=== PATIENT | male | born 1950 | race Caucasian/White ===

== ENCOUNTER 2022-08-27 04:52 | Inpatient (IN) | payer MEDICAID ==
[~2022-08-27] VITALS: Ht 162.6 cm; Wt 68.9 kg
[2022-08-27 05:33] LABS: CHLORIDE 104 mEq/L (98-107)
[2022-08-27 05:44] LABS: ETHANOL BLOOD < 10 mg/dL
[2022-08-27 05:48] LABS: BASOPHILS % 0.8 % (0.0-2.0); EOSINOPHILS % 4.5 % (0.0-5.0); HEMOGLOBIN. 15.5 g/dL (14.0-18.0); LYMPHOCYTES % 24.8 % (20.0-50.0); MEAN CORPUSCULAR HEMOGLOBIN 29.9 pg (28.0-32.0); MEAN CORPUSCULAR VOLUME 84.6 fL (80.0-94.0); MEAN PLATELET VOLUME 8.5 fl (7.4-10.4); MONOCYTES % 9.4 % (2.0-8.0); NEUTROPHILS % 60.5 % (40.0-76.0); PLATELET 188 x1000/uL (130-400); RED CELL DISTRIBUTION WIDTH 13.4 % (11.6-14.6)
[2022-08-27] MEDS ORDERED: IOHEXOL-350 100 ML BOTTLE ONE (07:20)
[2022-08-27 10:14] LABS: CLARITY URINE CLEAR (CLEAR); COLOR URINE YELLOW (YELLOW); KETONES URINE NEGATIVE (NEGATIVE); LEUKOCYTE ESTERASE URINE NEGATIVE (NEGATIVE); NITRITE URINE NEGATIVE (NEGATIVE); OCCULT BLOOD URINE NEGATIVE (NEGATIVE); PH URINE 5.5 (4.5-8.0); PROTEIN URINE 1+ (NEGATIVE); SPECIFIC GRAVITY URINE 1.054 (1.005-1.030); UROBILINOGEN URINE 0.2 E.U./dL (0.2-1.0)
[2022-08-27 11:06] LABS: *AMPHETAMINES SCREEN URINE NEGATIVE (NEGATIVE); *BARBITURATES SCREEN URINE NEGATIVE (NEGATIVE); *BENZODIAZEPINES SCREEN URINE NEGATIVE (NEGATIVE); *COCAINE SCREEN URINE NEGATIVE (NEGATIVE); CANNABINOID URINE SCREEN NEGATIVE (NEGATIVE); METHADONE URINE SCREEN NEGATIVE (NEGATIVE); OPIATES URINE SCREEN NEGATIVE (NEGATIVE); PHENCYCLIDINE URINE SCREEN NEGATIVE (NEGATIVE)
[2022-08-27] MEDS ORDERED: DEXTROSE 50% WATER 50ML SYRINGE IV PRN (12:45)
[2022-08-27] MEDS ORDERED: IPRATROPIUM/ALBUTEROL 0.5-3(2.5)MG/3ML NEB HHN PRN (12:45)
[2022-08-27] MEDS ORDERED: DIPHENHYDRAMINE 50MG/ML VIAL IV PRN (12:45)
[2022-08-27] MEDS ORDERED: ONDANSETRON HCL 4MG/2ML INJ IV PRN (12:45)
[2022-08-27] MEDS: BLOOD SUGAR DIAGNOSTIC STRIP TEST SCH ×3 (13:20→21:08)
[2022-08-27] MEDS: INSULIN LISPRO 100 UNITS/ML SUBCUT SCH ×2 (17:05→22:47)
[2022-08-27] MEDS: CLONIDINE 0.1MG TABLET PO PRN ×2 (17:06→19:25)
[2022-08-27 22:00] VITALS: BP 141/74
[2022-08-27] MEDS ORDERED: LISI10TA26 MT (23:45)
[2022-08-28] VITALS (7 sets, daily range): BP systolic 103–147; BP diastolic 59–75
[2022-08-28] MEDS: BLOOD SUGAR DIAGNOSTIC STRIP TEST SCH ×4 (06:16→21:00)
[2022-08-28] MEDS: INSULIN LISPRO 100 UNITS/ML SUBCUT SCH ×4 (06:31→20:46)
[2022-08-28 07:16] LABS: BASOPHILS % 0.7 % (0.0-2.0); EOSINOPHILS % 3.4 % (0.0-5.0); HEMATOCRIT. 43.3 % (42.0-52.0); HEMOGLOBIN. 15.3 g/dL (14.0-18.0); LYMPHOCYTES % 13.6 % (20.0-50.0); MEAN CORPUSCULAR HEMOGLOBIN 29.7 pg (28.0-32.0); MEAN CORPUSCULAR VOLUME 84.1 fL (80.0-94.0); MEAN PLATELET VOLUME 8.7 fl (7.4-10.4); MONOCYTES % 8.8 % (2.0-8.0); NEUTROPHILS % 73.5 % (40.0-76.0); PLATELET 181 x1000/uL (130-400); RED BLOOD CELL COUNT 5.15 mill/uL (4.7-6.1); RED CELL DISTRIBUTION WIDTH 13.2 % (11.6-14.6)
[2022-08-28] MEDS: ASPIRIN 81MG TABLET PO SCH (08:17)
[2022-08-28 08:29] LABS: CHLORIDE 103 mEq/L (98-107)
[2022-08-28 08:45] LABS: HDL CHOLESTEROL 55 mg/dL (40-59); LDL CHOLESTEROL 150 mg/dL (5-100)
[2022-08-28] MEDS: ENOXAPARIN 40MG/0.4ML SYR SUBCUT SCH (10:54)
[2022-08-28] MEDS: ATORVASTATIN CALCIUM 40MG TABLET PO SCH (20:46)
[2022-08-29] VITALS: BP 132/69
[2022-08-29 04:00] VITALS: BP 129/62
[2022-08-29] MEDS: INSULIN LISPRO 100 UNITS/ML SUBCUT SCH ×4 (05:56→20:57)
[2022-08-29] MEDS: BLOOD SUGAR DIAGNOSTIC STRIP TEST SCH ×4 (05:56→21:00)
[2022-08-29 06:46] LABS: BASOPHILS % 0.5 % (0.0-2.0); EOSINOPHILS % 2.7 % (0.0-5.0); HEMATOCRIT. 43.6 % (42.0-52.0); HEMOGLOBIN. 15.5 g/dL (14.0-18.0); LYMPHOCYTES % 15.1 % (20.0-50.0); MEAN CORPUSCULAR HEMOGLOBIN 29.8 pg (28.0-32.0); MEAN CORPUSCULAR VOLUME 84.1 fL (80.0-94.0); MEAN PLATELET VOLUME 8.8 fl (7.4-10.4); MONOCYTES % 11.1 % (2.0-8.0); NEUTROPHILS % 70.6 % (40.0-76.0); PLATELET 176 x1000/uL (130-400); RED BLOOD CELL COUNT 5.18 mill/uL (4.7-6.1); RED CELL DISTRIBUTION WIDTH 12.9 % (11.6-14.6)
[2022-08-29 06:49] LABS: CHLORIDE 101 mEq/L (98-107)
[2022-08-29] MEDS: ASPIRIN 81MG TABLET PO SCH (08:07)
[2022-08-29] MEDS: CLOPIDOGREL 75MG TABLET PO SCH (08:07)
[2022-08-29 09:00] VITALS: BP 125/74
[2022-08-29] MEDS: ENOXAPARIN 40MG/0.4ML SYR SUBCUT SCH (10:26)
[2022-08-29 12:00] VITALS: BP 135/58
[2022-08-29 16:00] VITALS: BP 154/76
[2022-08-29 20:00] VITALS: BP 139/74
[2022-08-29] MEDS: ATORVASTATIN CALCIUM 40MG TABLET PO SCH (20:57)
[2022-08-29] MEDS ORDERED: INSULIN GLARGINE 100 UNITS/ML SUBCUT SCH ×2 (22:00)
[2022-08-30 04:00] VITALS: BP 115/61
[2022-08-30] MEDS: INSULIN LISPRO 100 UNITS/ML SUBCUT SCH ×4 (06:09→20:46)
[2022-08-30] MEDS: BLOOD SUGAR DIAGNOSTIC STRIP TEST SCH ×4 (06:10→21:00)
[2022-08-30 08:00] VITALS: BP 121/71
[2022-08-30 08:31] LABS: HEMOGLOBIN. 14.8 g/dL (14.0-18.0); MEAN CORPUSCULAR HEMOGLOBIN 29.6 pg (28.0-32.0); MEAN PLATELET VOLUME 8.4 fl (7.4-10.4); PLATELET 168 x1000/uL (130-400); RED CELL DISTRIBUTION WIDTH 12.9 % (11.6-14.6)
[2022-08-30 08:44] LABS: CHLORIDE 103 mEq/L (98-107)
[2022-08-30] MEDS: CLOPIDOGREL 75MG TABLET PO SCH (09:33)
[2022-08-30] MEDS: ENOXAPARIN 40MG/0.4ML SYR SUBCUT SCH (09:34)
[2022-08-30] MEDS: ASPIRIN 81MG TABLET PO SCH (09:34)
[2022-08-30 12:00] VITALS: BP 129/65
[2022-08-30 14:52] LABS: PLATELET ESTIMATE NORMAL
[2022-08-30 16:00] VITALS: BP 154/59
[2022-08-30 20:00] VITALS: BP 137/68
[2022-08-30] MEDS: ATORVASTATIN CALCIUM 40MG TABLET PO SCH (20:45)
[2022-08-30] MEDS: INSULIN GLARGINE 100 UNITS/ML SUBCUT SCH (22:07)
[2022-08-31] VITALS (7 sets, daily range): BP systolic 112–160; BP diastolic 55–82
[2022-08-31] MEDS: BLOOD SUGAR DIAGNOSTIC STRIP TEST SCH ×4 (06:36→21:02)
[2022-08-31] MEDS: INSULIN LISPRO 100 UNITS/ML SUBCUT SCH ×4 (06:36→21:02)
[2022-08-31] MEDS: ASPIRIN 81MG TABLET PO SCH (09:15)
[2022-08-31] MEDS: CLOPIDOGREL 75MG TABLET PO SCH (09:15)
[2022-08-31] MEDS: ENOXAPARIN 40MG/0.4ML SYR SUBCUT SCH (13:22)
[2022-08-31] MEDS: ATORVASTATIN CALCIUM 40MG TABLET PO SCH (21:01)
[2022-08-31] MEDS: INSULIN GLARGINE 100 UNITS/ML SUBCUT SCH (22:21)
[2022-08-31] MEDS: CLONIDINE 0.1MG TABLET PO PRN (23:04)
[2022-09-01] VITALS: BP 125/60
[2022-09-01 04:00] VITALS: BP 124/55
[2022-09-01] MEDS: INSULIN LISPRO 100 UNITS/ML SUBCUT SCH ×4 (06:23→21:25)
[2022-09-01] MEDS: BLOOD SUGAR DIAGNOSTIC STRIP TEST SCH ×4 (06:23→21:22)
[2022-09-01 08:00] VITALS: BP 129/59
[2022-09-01] MEDS: ASPIRIN 81MG TABLET PO SCH (09:51)
[2022-09-01] MEDS: CLOPIDOGREL 75MG TABLET PO SCH (09:51)
[2022-09-01] MEDS: ENOXAPARIN 40MG/0.4ML SYR SUBCUT SCH (09:52)
[2022-09-01 12:00] VITALS: BP 131/63
[2022-09-01 16:00] VITALS: BP 126/58
[2022-09-01 16:45] LABS: PROTHROMBIN TIME 10.5 sec (9.6-11.0)
[2022-09-01 20:00] VITALS: BP 113/52
[2022-09-01] MEDS: INSULIN GLARGINE 100 UNITS/ML SUBCUT SCH (21:24)
[2022-09-01] MEDS: ATORVASTATIN CALCIUM 40MG TABLET PO SCH (22:00)
[2022-09-02] VITALS: BP 132/80
[2022-09-02 04:00] VITALS: BP 130/80
[2022-09-02] MEDS: BLOOD SUGAR DIAGNOSTIC STRIP TEST SCH ×4 (06:21→21:13)
[2022-09-02] MEDS: INSULIN LISPRO 100 UNITS/ML SUBCUT SCH ×4 (06:21→21:00)
[2022-09-02 08:00] VITALS: BP_SYST 116; BP_DIAS 61; BP_DIAS 67
[2022-09-02] MEDS: CLOPIDOGREL 75MG TABLET PO SCH (09:01)
[2022-09-02] MEDS: ASPIRIN 81MG TABLET PO SCH (09:01)
[2022-09-02] MEDS: ENOXAPARIN 40MG/0.4ML SYR SUBCUT SCH (11:58)
[2022-09-02 12:00] VITALS: BP 118/57
[2022-09-02 16:00] VITALS: BP 127/63
[2022-09-02 20:00] VITALS: BP 157/59
[2022-09-02] MEDS: INSULIN GLARGINE 100 UNITS/ML SUBCUT SCH (21:19)
[2022-09-02] MEDS: ATORVASTATIN CALCIUM 40MG TABLET PO SCH (21:19)
[2022-09-03] VITALS: BP 137/61
[2022-09-03 04:00] VITALS: BP 128/56
[2022-09-03] MEDS: INSULIN LISPRO 100 UNITS/ML SUBCUT SCH ×4 (06:24→20:44)
[2022-09-03] MEDS: BLOOD SUGAR DIAGNOSTIC STRIP TEST SCH ×4 (06:24→20:45)
[2022-09-03 08:00] VITALS: BP 138/57
[2022-09-03] MEDS: CLOPIDOGREL 75MG TABLET PO SCH (09:19)
[2022-09-03] MEDS: ASPIRIN 81MG TABLET PO SCH (09:19)
[2022-09-03] MEDS: ENOXAPARIN 40MG/0.4ML SYR SUBCUT SCH (11:28)
[2022-09-03 12:00] VITALS: BP 141/79
[2022-09-03] MEDS ORDERED: IPRATROPIUM BROMIDE (0.02%) 0.5MG/2.5ML NEB HHN PRN (12:45)
[2022-09-03] MEDS ORDERED: ALBUTEROL (0.083%) 2.5MG/3ML NEB HHN PRN (12:45)
[2022-09-03 16:00] VITALS: BP 141/67
[2022-09-03 20:00] VITALS: BP 146/62
[2022-09-03] MEDS: ATORVASTATIN CALCIUM 40MG TABLET PO SCH (20:41)
[2022-09-03] MEDS: INSULIN GLARGINE 100 UNITS/ML SUBCUT SCH (21:04)
[2022-09-04] VITALS: BP 147/61
[2022-09-04 04:00] VITALS: BP 157/65
[2022-09-04] MEDS: BLOOD SUGAR DIAGNOSTIC STRIP TEST SCH ×4 (06:41→21:19)
[2022-09-04] MEDS: INSULIN LISPRO 100 UNITS/ML SUBCUT SCH ×4 (06:41→21:34)
[2022-09-04 06:57] LABS: BASOPHILS % 0.7 % (0.0-2.0); EOSINOPHILS % 2.2 % (0.0-5.0); HEMATOCRIT. 39.1 % (42.0-52.0); LYMPHOCYTES % 19.5 % (20.0-50.0); MEAN CORPUSCULAR HEMOGLOBIN 30.1 pg (28.0-32.0); MEAN CORPUSCULAR VOLUME 84.2 fL (80.0-94.0); MEAN PLATELET VOLUME 8.5 fl (7.4-10.4); MONOCYTES % 9.1 % (2.0-8.0); NEUTROPHILS % 68.5 % (40.0-76.0); PLATELET 198 x1000/uL (130-400); RED BLOOD CELL COUNT 4.64 mill/uL (4.7-6.1); RED CELL DISTRIBUTION WIDTH 12.8 % (11.6-14.6)
[2022-09-04 07:26] LABS: CHLORIDE 105 mEq/L (98-107)
[2022-09-04 08:00] VITALS: BP 124/40
[2022-09-04] MEDS: CLOPIDOGREL 75MG TABLET PO SCH (09:27)
[2022-09-04] MEDS: ASPIRIN 81MG TABLET PO SCH (09:27)
[2022-09-04] MEDS: ENOXAPARIN 40MG/0.4ML SYR SUBCUT SCH (11:13)
[2022-09-04 12:00] VITALS: BP 144/64
[2022-09-04 16:00] VITALS: BP 160/76
[2022-09-04 20:00] VITALS: BP 139/58
[2022-09-04] MEDS: ATORVASTATIN CALCIUM 40MG TABLET PO SCH (21:29)
[2022-09-04] MEDS: INSULIN GLARGINE 100 UNITS/ML SUBCUT SCH (21:34)
[2022-09-05] VITALS: BP 128/60
[2022-09-05 04:00] VITALS: BP 114/60
[2022-09-05] MEDS: BLOOD SUGAR DIAGNOSTIC STRIP TEST SCH ×4 (06:32→20:54)
[2022-09-05] MEDS: INSULIN LISPRO 100 UNITS/ML SUBCUT SCH ×4 (06:40→20:54)
[2022-09-05 07:23] LABS: CHLORIDE 105 mEq/L (98-107)
[2022-09-05 07:35] LABS: BASOPHILS % 0.6 % (0.0-2.0); EOSINOPHILS % 2.3 % (0.0-5.0); HEMATOCRIT. 37.8 % (42.0-52.0); HEMOGLOBIN. 13.6 g/dL (14.0-18.0); LYMPHOCYTES % 19.3 % (20.0-50.0); MEAN CORPUSCULAR HEMOGLOBIN 30.1 pg (28.0-32.0); MEAN CORPUSCULAR VOLUME 83.6 fL (80.0-94.0); MEAN PLATELET VOLUME 8.5 fl (7.4-10.4); MONOCYTES % 10.3 % (2.0-8.0); NEUTROPHILS % 67.5 % (40.0-76.0); PLATELET 209 x1000/uL (130-400); RED BLOOD CELL COUNT 4.51 mill/uL (4.7-6.1); RED CELL DISTRIBUTION WIDTH 13.1 % (11.6-14.6)
[2022-09-05 12:00] VITALS: BP 139/41
[2022-09-05] MEDS: ENOXAPARIN 40MG/0.4ML SYR SUBCUT SCH (12:21)
[2022-09-05 16:00] VITALS: BP 118/56
[2022-09-05 20:00] VITALS: BP 131/56
[2022-09-05] MEDS: ATORVASTATIN CALCIUM 40MG TABLET PO SCH (20:52)
[2022-09-05] MEDS: INSULIN GLARGINE 100 UNITS/ML SUBCUT SCH (20:53)
[2022-09-06] VITALS: BP 125/59
[2022-09-06 04:00] VITALS: BP 119/59
[2022-09-06] MEDS: INSULIN LISPRO 100 UNITS/ML SUBCUT SCH ×4 (06:28→21:23)
[2022-09-06] MEDS: BLOOD SUGAR DIAGNOSTIC STRIP TEST SCH ×4 (06:28→20:57)
[2022-09-06 08:00] VITALS: BP 118/60
[2022-09-06] MEDS: ENOXAPARIN 40MG/0.4ML SYR SUBCUT SCH (08:37)
[2022-09-06 12:00] VITALS: BP 129/69
[2022-09-06 16:00] VITALS: BP 121/66
[2022-09-06 20:00] VITALS: BP 154/67
[2022-09-06] MEDS: ATORVASTATIN CALCIUM 40MG TABLET PO SCH (20:57)
[2022-09-06] MEDS: INSULIN GLARGINE 100 UNITS/ML SUBCUT SCH (21:24)
[2022-09-07 00:18] VITALS: BP 115/51
[2022-09-07 04:00] VITALS: BP 125/52
[2022-09-07] MEDS: BLOOD SUGAR DIAGNOSTIC STRIP TEST SCH ×4 (06:05→23:11)
[2022-09-07] MEDS: INSULIN LISPRO 100 UNITS/ML SUBCUT SCH ×4 (06:06→23:11)
[2022-09-07 08:00] VITALS: BP 111/60
[2022-09-07] MEDS: ENOXAPARIN 40MG/0.4ML SYR SUBCUT SCH (09:07)
[2022-09-07 12:00] VITALS: BP 142/48
[2022-09-07 16:00] VITALS: BP 141/67
[2022-09-07 20:00] VITALS: BP 134/55
[2022-09-07] MEDS: ATORVASTATIN CALCIUM 40MG TABLET PO SCH (23:08)
[2022-09-07] MEDS: INSULIN GLARGINE 100 UNITS/ML SUBCUT SCH (23:08)
[2022-09-08] VITALS: BP 142/55
[2022-09-08 04:00] VITALS: BP 130/68
[2022-09-08] MEDS: BLOOD SUGAR DIAGNOSTIC STRIP TEST SCH ×4 (05:57→20:40)
[2022-09-08] MEDS: INSULIN LISPRO 100 UNITS/ML SUBCUT SCH ×4 (05:58→20:40)
[2022-09-08 08:00] VITALS: BP 132/57
[2022-09-08] MEDS: ENOXAPARIN 40MG/0.4ML SYR SUBCUT SCH (11:38)
[2022-09-08 12:00] VITALS: BP 124/61
[2022-09-08 16:00] VITALS: BP 129/60
[2022-09-08 20:00] VITALS: BP 128/61
[2022-09-08] MEDS: ACETAMINOPHEN 325MG TABLET PO PRN (20:37)
[2022-09-08] MEDS: ATORVASTATIN CALCIUM 40MG TABLET PO SCH (20:37)
[2022-09-08] MEDS: INSULIN GLARGINE 100 UNITS/ML SUBCUT SCH (21:59)
[2022-09-09] VITALS: BP 121/57
[2022-09-09 04:00] VITALS: BP 124/67
[2022-09-09] MEDS: BLOOD SUGAR DIAGNOSTIC STRIP TEST SCH ×4 (07:20→21:00)
[2022-09-09] MEDS: INSULIN LISPRO 100 UNITS/ML SUBCUT SCH ×4 (07:50→21:00)
[2022-09-09 08:00] VITALS: BP 124/63
[2022-09-09 12:00] VITALS: BP 127/59
[2022-09-09 16:00] VITALS: BP 139/63
[2022-09-09 20:00] VITALS: BP 119/60
[2022-09-09] MEDS: INSULIN GLARGINE 100 UNITS/ML SUBCUT SCH (22:00)
[2022-09-09] MEDS: ATORVASTATIN CALCIUM 40MG TABLET PO SCH (22:04)
[2022-09-10] VITALS (40 sets, daily range): BP systolic 93–169; BP diastolic 30–108
[2022-09-10] MEDS: BLOOD SUGAR DIAGNOSTIC STRIP TEST SCH ×5 (05:47→21:57)
[2022-09-10] MEDS: INSULIN LISPRO 100 UNITS/ML SUBCUT SCH ×4 (06:08→21:00)
[2022-09-10 07:05] LABS: CHLORIDE 104 mEq/L (98-107)
[2022-09-10 07:30] LABS: BASOPHILS % 0.5 % (0.0-2.0); EOSINOPHILS % 1.9 % (0.0-5.0); HEMOGLOBIN. 11.9 g/dL (14.0-18.0); LYMPHOCYTES % 16.3 % (20.0-50.0); MEAN CORPUSCULAR HEMOGLOBIN 30.3 pg (28.0-32.0); MEAN CORPUSCULAR VOLUME 84.1 fL (80.0-94.0); MEAN PLATELET VOLUME 8.7 fl (7.4-10.4); MONOCYTES % 9.4 % (2.0-8.0); NEUTROPHILS % 71.9 % (40.0-76.0); PLATELET 231 x1000/uL (130-400); RED BLOOD CELL COUNT 3.93 mill/uL (4.7-6.1); RED CELL DISTRIBUTION WIDTH 12.6 % (11.6-14.6)
[2022-09-10] MEDS ORDERED: THROMBIN (BOVINE) 5000 UNITS/VIAL TOP ONE (08:18)
[2022-09-10] MEDS ORDERED: HEPARIN SODIUM 1,000 UNIT/1ML VIAL IV ONE (08:18)
[2022-09-10] MEDS ORDERED: POLYMYXIN B SULFATE 500000 UNITS/VIAL ONE (08:18)
[2022-09-10] MEDS ORDERED: LIDOCAINE HCL 1% 10 MG/ML 10ML VIAL ONE (08:20)
[2022-09-10] MEDS ORDERED: BUPIVACAINE HCL/PF 0.5% (5MG/ML) 10ML ONE (08:20)
[2022-09-10] MEDS ORDERED: NICARDIPINE 40MG/200ML PREMIX 200 ML IV ONE (08:33)
[2022-09-10] MEDS ORDERED: PAPAVERINE HCL 30 MG/ML 2ML IV ONE (09:49)
[2022-09-10] MEDS ORDERED: ETOMIDATE 2MG/ML 10ML VIAL IV ONE (12:42)
[2022-09-10] MEDS ORDERED: DEXAMETHASONE 4MG/ML 1ML VIAL ONE (12:42)
[2022-09-10] MEDS ORDERED: SUCCINYLCHOLINE CHLORIDE 200MG/10ML IV ONE (12:42)
[2022-09-10] MEDS ORDERED: ONDANSETRON HCL 4MG/2ML INJ ONE (12:42)
[2022-09-10] MEDS ORDERED: FENTANYL CITRATE/PF 50MCG/ML 2ML VIAL ONE (12:43)
[2022-09-10] MEDS ORDERED: GLYCOPYRROLATE 0.2 MG/ML 2ML VIAL ONE ×2 (12:43)
[2022-09-10] MEDS ORDERED: NEOSTIGMINE METHYLSULFATE 1MG/ML 10 ML VIAL ONE ×2 (12:43→14:46)
[2022-09-10] MEDS ORDERED: ROCURONIUM BROMIDE 10MG/ML VIAL 5ML IV ONE (12:43)
[2022-09-10] MEDS ORDERED: MIDAZOLAM HCL 2 MG/2 ML VIAL ONE (12:44)
[2022-09-10] MEDS ORDERED: PROPOFOL 200MG/20ML VIAL IV ONE (13:21)
[2022-09-10] MEDS ORDERED: LABETALOL HCL 5MG/ML VIAL 20ML IV ONE (14:54)
[2022-09-10] MEDS ORDERED: HYDRALAZINE 20MG/ML VIAL ONE (14:54)
[2022-09-10] MEDS ORDERED: HEPARIN 1000 UNITS/ML 10ML ONE (14:54)
[2022-09-10] MEDS ORDERED: PROTAMINE SULFATE 10MG/ML VIAL 5ML IV ONE (14:54)
[2022-09-10] MEDS ORDERED: DOPAMINE 400MG/250ML PREMIX 250 ML IV PRN (16:00)
[2022-09-10] MEDS: NITROGLYCERIN 50MG PREMIX 250 ML IV PRN (18:18)
[2022-09-10] MEDS: ATORVASTATIN CALCIUM 40MG TABLET PO SCH (21:00)
[2022-09-10] MEDS: MORPHINE SULFATE 2 MG/ML CPJ (NOT FOR IM USE) IV PRN (22:00)
[2022-09-10] MEDS: INSULIN GLARGINE 100 UNITS/ML SUBCUT SCH (22:00)
[2022-09-10] MEDS: ACETAMINOPHEN 325MG TABLET PO PRN (23:56)
[2022-09-11] VITALS (62 sets, daily range): BP systolic 48–207; BP diastolic 17–133
[2022-09-11] MEDS: ACETAMINOPHEN 650MG/20.3ML UDC PO PRN (00:43)
[2022-09-11] MEDS: MORPHINE SULFATE 2 MG/ML CPJ (NOT FOR IM USE) IV PRN ×4 (03:13→18:20)
[2022-09-11 05:14] LABS: HEMATOCRIT. 34.1 % (42.0-52.0); HEMOGLOBIN. 11.9 g/dL (14.0-18.0); MEAN CORPUSCULAR HEMOGLOBIN 29.3 pg (28.0-32.0); MEAN CORPUSCULAR VOLUME 83.6 fL (80.0-94.0); MEAN PLATELET VOLUME 8.2 fl (7.4-10.4); PLATELET 284 x1000/uL (130-400); RED BLOOD CELL COUNT 4.08 mill/uL (4.7-6.1); RED CELL DISTRIBUTION WIDTH 13.2 % (11.6-14.6)
[2022-09-11 05:47] LABS: CHLORIDE 106 mEq/L (98-107)
[2022-09-11] MEDS: BLOOD SUGAR DIAGNOSTIC STRIP TEST SCH ×4 (07:50→21:18)
[2022-09-11] MEDS: INSULIN LISPRO 100 UNITS/ML SUBCUT SCH ×5 (08:20→22:30)
[2022-09-11] MEDS: ASPIRIN 81MG TABLET PO SCH ×2 (09:39)
[2022-09-11 12:19] LABS: ATYPICAL LYMPHOCYTES 1
[2022-09-11 12:20] LABS: PLATELET ESTIMATE NORMAL
[2022-09-11] MEDS ORDERED: NALOXONE HCL 0.4MG/ML VIAL IV PRN (14:45)
[2022-09-11] MEDS: NITROGLYCERIN 50MG PREMIX 250 ML IV PRN (14:46)
[2022-09-11] MEDS: ATORVASTATIN CALCIUM 40MG TABLET PO SCH ×2 (21:17→22:09)
[2022-09-11] MEDS: NICARDIPINE 50 MG in SODIUM CHLORIDE 0.9% 230 ML IV PRN (22:08)
[2022-09-11] MEDS ORDERED: MORPHINE SULFATE 2 MG/ML CPJ (NOT FOR IM USE) IV PRN (22:15)
[2022-09-11] MEDS: INSULIN GLARGINE 100 UNITS/ML SUBCUT SCH (22:27)
[2022-09-12] VITALS (59 sets, daily range): BP systolic 55–254; BP diastolic 23–236
[2022-09-12] MEDS: NICARDIPINE 50 MG in SODIUM CHLORIDE 0.9% 230 ML IV PRN (03:13)
[2022-09-12] MEDS: DEXT 5%/0.45% NACL 1000ML 1,000 ML IV SCH ×2 (03:19→03:20)
[2022-09-12 05:19] LABS: HEMATOCRIT. 33.3 % (42.0-52.0); HEMOGLOBIN. 11.5 g/dL (14.0-18.0); MEAN PLATELET VOLUME 8.2 fl (7.4-10.4); PLATELET 278 x1000/uL (130-400); RED BLOOD CELL COUNT 3.96 mill/uL (4.7-6.1); RED CELL DISTRIBUTION WIDTH 12.7 % (11.6-14.6)
[2022-09-12 05:37] LABS: CHLORIDE 107 mEq/L (98-107)
[2022-09-12] MEDS: INSULIN LISPRO 100 UNITS/ML SUBCUT SCH ×3 (06:00→18:00)
[2022-09-12] MEDS: BLOOD SUGAR DIAGNOSTIC STRIP TEST SCH ×3 (06:10→18:39)
[2022-09-12] MEDS: ACETAMINOPHEN 650MG/20.3ML UDC PO PRN (07:02)
[2022-09-12] MEDS: ASPIRIN 81MG TABLET PO SCH (09:00)
[2022-09-12 10:42] LABS: BG BASE EXCESS -2.4 mmol/L (-2.0-2.0); BG CARBOXYHEMOGLOBIN 0.2 % (0.5-1.5); BG DEOXYHEMOGLOBIN 15.5 % (0.0-5.0); BG FRACTION INSPIRED OXYGEN 21; BG HCO3 ACT 20.8 mmol/L (22.0-26.0); BG METHEMOGLOBIN 0.3 % (0.0-1.5); BG OXYGEN SATURATION 84.4 % (92.0-98.5); BG PCO2 31.3 mmHg (35.0-45.0); BG PH 7.441 (7.350-7.450); BG PO2 45.8 mmHg (75.0-100.0); BG SAMPLE SITE ALINE; BG TOTAL HEMOGLOBIN 12.7 g/dL (12.0-18.0); BG VENT MODE ROOM AIR
[2022-09-12] MEDS: CEFEPIME 1,000 MG in DEXTROSE 5% WATER 50 ML IV SCH ×2 (11:00→23:19)
[2022-09-12 12:14] LABS: BG BASE EXCESS -0.1 mmol/L (-2.0-2.0); BG CARBOXYHEMOGLOBIN 0.4 % (0.5-1.5); BG DEOXYHEMOGLOBIN 8.1 % (0.0-5.0); BG FRACTION INSPIRED OXYGEN 60; BG HCO3 ACT 23.9 mmol/L (22.0-26.0); BG METHEMOGLOBIN 0.3 % (0.0-1.5); BG OXYGEN SATURATION 91.8 % (92.0-98.5); BG OXYHEMOGLOBIN 91.2 % (94.0-97.0); BG PCO2 36.9 mmHg (35.0-45.0); BG PO2 61.2 mmHg (75.0-100.0); BG SAMPLE SITE ALINE; BG TOTAL HEMOGLOBIN 12.7 g/dL (12.0-18.0); BG VENT MODE MASK - SIMPLE
[2022-09-12 15:12] LABS: PLATELET ESTIMATE NORMAL
[2022-09-12] MEDS: ATORVASTATIN CALCIUM 40MG TABLET PO SCH (22:02)
[2022-09-12] MEDS: INSULIN GLARGINE 100 UNITS/ML SUBCUT SCH (22:31)
[2022-09-13] VITALS (60 sets, daily range): BP systolic 119–151; BP diastolic 59–77
[2022-09-13] MEDS: INSULIN LISPRO 100 UNITS/ML SUBCUT SCH ×4 (01:12→17:57)
[2022-09-13] MEDS: BLOOD SUGAR DIAGNOSTIC STRIP TEST SCH ×4 (06:39→17:57)
[2022-09-13 07:20] LABS: CHLORIDE 108 mEq/L (98-107)
[2022-09-13 09:12] LABS: BG CARBOXYHEMOGLOBIN 0.3 % (0.5-1.5); BG DEOXYHEMOGLOBIN 4.1 % (0.0-5.0); BG HCO3 ACT 18.9 mmol/L (22.0-26.0); BG METHEMOGLOBIN 0.3 % (0.0-1.5); BG OXYGEN SATURATION 95.9 % (92.0-98.5); BG OXYHEMOGLOBIN 95.3 % (94.0-97.0); BG PCO2 28.3 mmHg (35.0-45.0); BG PH 7.443 (7.350-7.450); BG PO2 79.4 mmHg (75.0-100.0); BG SAMPLE SITE LEFT RADIAL; BG TOTAL HEMOGLOBIN 11.7 g/dL (12.0-18.0); BG VENT MODE MASK - SIMPLE
[2022-09-13 12:16] LABS: HEMATOCRIT. 31.5 % (42.0-52.0); MEAN CORPUSCULAR HEMOGLOBIN 29.8 pg (28.0-32.0); MEAN CORPUSCULAR VOLUME 85.2 fL (80.0-94.0); PLATELET 241 x1000/uL (130-400)
[2022-09-13] MEDS ORDERED: IOHEXOL-350 100 ML BOTTLE ONE (12:35)
[2022-09-13 12:48] LABS: PLATELET ESTIMATE NORMAL
[2022-09-13] MEDS: SODIUM CHLORIDE 0.9% 1,000 ML IV SCH (13:01)
[2022-09-13] MEDS: CEFEPIME 1,000 MG in DEXTROSE 5% WATER 50 ML IV SCH ×2 (13:02→23:06)
[2022-09-13] MEDS: NICARDIPINE 50 MG in SODIUM CHLORIDE 0.9% 230 ML IV PRN (17:57)
[2022-09-13] MEDS: ATORVASTATIN CALCIUM 40MG TABLET PO SCH (21:49)
[2022-09-14] VITALS (96 sets, daily range): BP systolic 115–147; BP diastolic 57–77
[2022-09-14] MEDS: INSULIN LISPRO 100 UNITS/ML SUBCUT SCH ×4 (00:24→17:48)
[2022-09-14] MEDS: NICARDIPINE 50 MG in SODIUM CHLORIDE 0.9% 230 ML IV PRN ×5 (02:04→22:08)
[2022-09-14 05:01] LABS: HEMATOCRIT. 33.3 % (42.0-52.0); HEMOGLOBIN. 11.6 g/dL (14.0-18.0); MEAN CORPUSCULAR HEMOGLOBIN 29.3 pg (28.0-32.0); MEAN CORPUSCULAR VOLUME 84.6 fL (80.0-94.0); MEAN PLATELET VOLUME 7.9 fl (7.4-10.4); PLATELET 269 x1000/uL (130-400); RED BLOOD CELL COUNT 3.94 mill/uL (4.7-6.1); RED CELL DISTRIBUTION WIDTH 12.9 % (11.6-14.6)
[2022-09-14 05:17] LABS: CHLORIDE 108 mEq/L (98-107)
[2022-09-14] MEDS: BLOOD SUGAR DIAGNOSTIC STRIP TEST SCH ×5 (06:00→23:49)
[2022-09-14] MEDS: SODIUM CHLORIDE 0.9% 1,000 ML IV SCH (06:23)
[2022-09-14 09:13] LABS: PLATELET ESTIMATE NORMAL
[2022-09-14] MEDS: CEFEPIME 1,000 MG in DEXTROSE 5% WATER 50 ML IV SCH ×2 (11:19→22:06)
[2022-09-14] MEDS: PANTOPRAZOLE SODIUM 40 MG/VIAL IV SCH (17:48)
[2022-09-14] MEDS: ATORVASTATIN CALCIUM 40MG TABLET PO SCH (20:40)
[2022-09-15] VITALS (94 sets, daily range): BP systolic 117–153; BP diastolic 41–74
[2022-09-15] MEDS: INSULIN LISPRO 100 UNITS/ML SUBCUT SCH ×4 (00:09→17:49)
[2022-09-15] MEDS: NICARDIPINE 50 MG in SODIUM CHLORIDE 0.9% 230 ML IV PRN ×5 (02:53→20:16)
[2022-09-15] MEDS: HYDRALAZINE 20MG/ML VIAL IV PRN (03:56)
[2022-09-15 05:10] LABS: MEAN CORPUSCULAR HEMOGLOBIN 29.2 pg (28.0-32.0); MEAN CORPUSCULAR VOLUME 84.7 fL (80.0-94.0); MEAN PLATELET VOLUME 7.7 fl (7.4-10.4); PLATELET 309 x1000/uL (130-400); RED BLOOD CELL COUNT 3.78 mill/uL (4.7-6.1); RED CELL DISTRIBUTION WIDTH 12.6 % (11.6-14.6)
[2022-09-15 05:42] LABS: CHLORIDE 115 mEq/L (98-107)
[2022-09-15] MEDS: BLOOD SUGAR DIAGNOSTIC STRIP TEST SCH ×3 (06:00→17:41)
[2022-09-15 10:09] LABS: PLATELET ESTIMATE NORMAL
[2022-09-15] MEDS: CEFEPIME 1,000 MG in DEXTROSE 5% WATER 50 ML IV SCH (10:09)
[2022-09-15] MEDS: PANTOPRAZOLE SODIUM 40 MG/VIAL IV SCH (10:10)
[2022-09-15] MEDS: SODIUM CHLORIDE 0.9% 1,000 ML IV SCH (10:10)
[2022-09-15] MEDS: INSULIN GLARGINE 100 UNITS/ML SUBCUT SCH ×2 (13:47→22:30)
[2022-09-15] MEDS ORDERED: NICARDIPINE 100 MG in SODIUM CHLORIDE 0.9% 60 ML IV PRN (19:00)
[2022-09-15] MEDS: ACETAMINOPHEN 650MG/20.3ML UDC PO PRN (20:45)
[2022-09-15] MEDS: ATORVASTATIN CALCIUM 40MG TABLET PO SCH (20:45)
[2022-09-15] MEDS: PIPERACILLIN/TAZOBACTAM 3.375 G in DEXTROSE 5% WATER 50 ML IV SCH (22:23)
[2022-09-15 23:05] LABS: CLARITY URINE CLEAR (CLEAR); COLOR URINE YELLOW (YELLOW); KETONES URINE TRACE (NEGATIVE); LEUKOCYTE ESTERASE URINE NEGATIVE (NEGATIVE); NITRITE URINE NEGATIVE (NEGATIVE); OCCULT BLOOD URINE NEGATIVE (NEGATIVE); PH URINE 5.5 (4.5-8.0); PROTEIN URINE 1+ (NEGATIVE); SPECIFIC GRAVITY URINE 1.021 (1.005-1.030)
[2022-09-16] VITALS (86 sets, daily range): BP systolic 105–152; BP diastolic 39–73
[2022-09-16] MEDS: INSULIN LISPRO 100 UNITS/ML SUBCUT SCH ×4 (00:03→17:39)
[2022-09-16] MEDS: NICARDIPINE 50 MG in SODIUM CHLORIDE 0.9% 230 ML IV PRN (01:47)
[2022-09-16 05:51] LABS: CHLORIDE 119 mEq/L (98-107)
[2022-09-16] MEDS: BLOOD SUGAR DIAGNOSTIC STRIP TEST SCH ×4 (06:13→17:13)
[2022-09-16] MEDS: PIPERACILLIN/TAZOBACTAM 3.375 G in DEXTROSE 5% WATER 50 ML IV SCH ×3 (06:13→21:26)
[2022-09-16 06:28] LABS: HEMATOCRIT. 31.4 % (42.0-52.0); HEMOGLOBIN. 10.5 g/dL (14.0-18.0); MEAN CORPUSCULAR HEMOGLOBIN 29.4 pg (28.0-32.0); MEAN CORPUSCULAR VOLUME 87.6 fL (80.0-94.0); MEAN PLATELET VOLUME 8.3 fl (7.4-10.4); PLATELET 290 x1000/uL (130-400); RED BLOOD CELL COUNT 3.58 mill/uL (4.7-6.1)
[2022-09-16] MEDS: PANTOPRAZOLE SODIUM 40 MG/VIAL IV SCH (09:22)
[2022-09-16] MEDS: INSULIN GLARGINE 100 UNITS/ML SUBCUT SCH ×2 (09:24→21:27)
[2022-09-16] MEDS: ACETAMINOPHEN 650MG/20.3ML UDC PO PRN ×2 (09:24→10:34)
[2022-09-16] MEDS ORDERED: INSULIN GLARGINE 100 UNITS/ML SUBCUT NR (10:15)
[2022-09-16 12:27] LABS: PLATELET ESTIMATE NORMAL
[2022-09-16] MEDS ORDERED: MORPHINE SULFATE 2 MG/ML CPJ (NOT FOR IM USE) IV PRN (17:30)
[2022-09-16] MEDS: ATORVASTATIN CALCIUM 40MG TABLET PO SCH (21:26)
[2022-09-17] VITALS (98 sets, daily range): BP systolic 108–163; BP diastolic 44–80
[2022-09-17] MEDS: INSULIN LISPRO 100 UNITS/ML SUBCUT SCH ×5 (00:01→17:46)
[2022-09-17] MEDS: HYDRALAZINE 20MG/ML VIAL IV PRN ×2 (03:19→09:16)
[2022-09-17] MEDS: ALBUTEROL (0.083%) 2.5MG/3ML NEB HHN SCH ×5 (04:34→21:04)
[2022-09-17] MEDS: NITROGLYCERIN 50MG PREMIX 250 ML IV PRN (04:42)
[2022-09-17] MEDS: NICARDIPINE 50 MG in SODIUM CHLORIDE 0.9% 230 ML IV PRN ×4 (04:49→16:09)
[2022-09-17 05:40] LABS: CHLORIDE 122 mEq/L (98-107)
[2022-09-17] MEDS ORDERED: ACETYLCYSTEINE 100MG/ML 10% VIAL 4ML INH SCH (06:00)
[2022-09-17 06:11] LABS: HEMATOCRIT. 36.6 % (42.0-52.0); HEMOGLOBIN. 12.4 g/dL (14.0-18.0); MEAN CORPUSCULAR HEMOGLOBIN 28.9 pg (28.0-32.0); MEAN CORPUSCULAR VOLUME 85.7 fL (80.0-94.0); MEAN PLATELET VOLUME 8.4 fl (7.4-10.4); PLATELET 288 x1000/uL (130-400); RED BLOOD CELL COUNT 4.27 mill/uL (4.7-6.1); RED CELL DISTRIBUTION WIDTH 12.9 % (11.6-14.6)
[2022-09-17] MEDS: PIPERACILLIN/TAZOBACTAM 3.375 G in DEXTROSE 5% WATER 50 ML IV SCH ×3 (06:28→22:25)
[2022-09-17] MEDS: BLOOD SUGAR DIAGNOSTIC STRIP TEST SCH ×4 (06:28→18:18)
[2022-09-17] MEDS: ACETAMINOPHEN 650MG/20.3ML UDC PO PRN (06:47)
[2022-09-17] MEDS: PANTOPRAZOLE SODIUM 40 MG/VIAL IV SCH (09:07)
[2022-09-17] MEDS: INSULIN GLARGINE 100 UNITS/ML SUBCUT SCH ×2 (09:10→22:29)
[2022-09-17 09:15] LABS: BG BASE EXCESS -1.6 mmol/L (-2.0-2.0); BG CARBOXYHEMOGLOBIN 0.2 % (0.5-1.5); BG DEOXYHEMOGLOBIN 0.9 % (0.0-5.0); BG FRACTION INSPIRED OXYGEN 100; BG HCO3 ACT 20.6 mmol/L (22.0-26.0); BG METHEMOGLOBIN 0.1 % (0.0-1.5); BG OXYGEN SATURATION 99.1 % (92.0-98.5); BG OXYHEMOGLOBIN 98.8 % (94.0-97.0); BG PCO2 27.7 mmHg (35.0-45.0); BG PO2 331.3 mmHg (75.0-100.0); BG SAMPLE SITE RIGHT RADIAL; BG TOTAL HEMOGLOBIN 12.2 g/dL (12.0-18.0); BG VENT MODE HIGH FLOW
[2022-09-17] MEDS ORDERED: ACETYLCYSTEINE 200MG/ML 20% VIAL 4ML INH SCH (09:30)
[2022-09-17] MEDS: ACETYLCYSTEINE 200MG/ML 20% VIAL 4ML INH SCH ×2 (11:02→15:53)
[2022-09-17] MEDS: AMLODIPINE 10MG TABLET PO SCH (16:09)
[2022-09-17] MEDS: CARVEDILOL 6.25 MG TABLET PO SCH ×2 (16:10→22:26)
[2022-09-17 16:43] LABS: PLATELET ESTIMATE NORMAL
[2022-09-17] MEDS: ATORVASTATIN CALCIUM 40MG TABLET PO SCH (22:25)
[2022-09-18] VITALS (84 sets, daily range): BP systolic 89–145; BP diastolic 37–61
[2022-09-18] MEDS: BLOOD SUGAR DIAGNOSTIC STRIP TEST SCH ×4 (00:28→18:29)
[2022-09-18] MEDS: INSULIN LISPRO 100 UNITS/ML SUBCUT SCH ×4 (00:29→18:33)
[2022-09-18] MEDS: ALBUTEROL (0.083%) 2.5MG/3ML NEB HHN SCH ×6 (01:34→21:03)
[2022-09-18] MEDS: ACETYLCYSTEINE 200MG/ML 20% VIAL 4ML INH SCH ×3 (01:34→15:05)
[2022-09-18] MEDS: NITROGLYCERIN 50MG PREMIX 250 ML IV PRN (04:08)
[2022-09-18] MEDS: NICARDIPINE 50 MG in SODIUM CHLORIDE 0.9% 230 ML IV PRN (04:09)
[2022-09-18 05:49] LABS: HEMATOCRIT. 32.4 % (42.0-52.0); HEMOGLOBIN. 10.8 g/dL (14.0-18.0); MEAN CORPUSCULAR HEMOGLOBIN 28.9 pg (28.0-32.0); MEAN CORPUSCULAR VOLUME 86.9 fL (80.0-94.0); MEAN PLATELET VOLUME 8.3 fl (7.4-10.4); PLATELET 323 x1000/uL (130-400); RED BLOOD CELL COUNT 3.73 mill/uL (4.7-6.1)
[2022-09-18] MEDS: PIPERACILLIN/TAZOBACTAM 3.375 G in DEXTROSE 5% WATER 50 ML IV SCH ×3 (07:16→22:30)
[2022-09-18] MEDS: CARVEDILOL 6.25 MG TABLET PO SCH (08:50)
[2022-09-18] MEDS: PANTOPRAZOLE SODIUM 40 MG/VIAL IV SCH (08:51)
[2022-09-18] MEDS: AMLODIPINE 10MG TABLET PO SCH ×2 (08:51→18:32)
[2022-09-18 08:57] LABS: BG BASE EXCESS -2.4 mmol/L (-2.0-2.0); BG CARBOXYHEMOGLOBIN 0.2 % (0.5-1.5); BG DEOXYHEMOGLOBIN 8.9 % (0.0-5.0); BG FRACTION INSPIRED OXYGEN 70; BG HCO3 ACT 20.2 mmol/L (22.0-26.0); BG METHEMOGLOBIN 0.3 % (0.0-1.5); BG OXYGEN SATURATION 91.1 % (92.0-98.5); BG OXYHEMOGLOBIN 90.6 % (94.0-97.0); BG PCO2 28.3 mmHg (35.0-45.0); BG PH 7.472 (7.350-7.450); BG PO2 60.8 mmHg (75.0-100.0); BG SAMPLE SITE RIGHT RADIAL; BG TOTAL HEMOGLOBIN 11.6 g/dL (12.0-18.0); BG VENT MODE HIGH FLOW
[2022-09-18] MEDS: INSULIN GLARGINE 100 UNITS/ML SUBCUT SCH ×2 (09:00→22:45)
[2022-09-18 10:12] LABS: PLATELET ESTIMATE NORMAL
[2022-09-18 11:58] LABS: BG BASE EXCESS -1.5 mmol/L (-2.0-2.0); BG CARBOXYHEMOGLOBIN 0.3 % (0.5-1.5); BG DEOXYHEMOGLOBIN 6.7 % (0.0-5.0); BG FRACTION INSPIRED OXYGEN 100; BG HCO3 ACT 21.9 mmol/L (22.0-26.0); BG METHEMOGLOBIN 0.4 % (0.0-1.5); BG OXYGEN SATURATION 93.3 % (92.0-98.5); BG OXYHEMOGLOBIN 92.6 % (94.0-97.0); BG PCO2 32.6 mmHg (35.0-45.0); BG PH 7.446 (7.350-7.450); BG PO2 69.4 mmHg (75.0-100.0); BG SAMPLE SITE RIGHT RADIAL; BG TOTAL HEMOGLOBIN 10.9 g/dL (12.0-18.0); BG VENT MODE HIGH FLOW
[2022-09-18] MEDS: HYDRALAZINE HCL 100MG TABLET PO SCH ×2 (12:04→18:32)
[2022-09-18] MEDS ORDERED: MORPHINE SULFATE 2 MG/ML CPJ (NOT FOR IM USE) IV PRN (14:30)
[2022-09-18] MEDS ORDERED: LORAZEPAM 2MG/ML CPJ IV PRN (14:30)
[2022-09-18] MEDS ORDERED: NALOXONE HCL 0.4MG/ML VIAL IV PRN (14:45)
[2022-09-18 15:21] LABS: BG BASE EXCESS -0.7 mmol/L (-2.0-2.0); BG CARBOXYHEMOGLOBIN 0.3 % (0.5-1.5); BG DEOXYHEMOGLOBIN 14.3 % (0.0-5.0); BG FRACTION INSPIRED OXYGEN 100; BG HCO3 ACT 23.7 mmol/L (22.0-26.0); BG METHEMOGLOBIN 0.3 % (0.0-1.5); BG OXYGEN SATURATION 85.6 % (92.0-98.5); BG OXYHEMOGLOBIN 85.1 % (94.0-97.0); BG PH 7.413 (7.350-7.450); BG PO2 52.1 mmHg (75.0-100.0); BG SAMPLE SITE RIGHT RADIAL; BG TOTAL HEMOGLOBIN 11.3 g/dL (12.0-18.0); BG VENT MODE VENT - AC
[2022-09-18] MEDS ORDERED: PROPOFOL 10MG/ML 100ML 100 ML IV PRN (21:15)
[2022-09-18] MEDS: CARVEDILOL 12.5MG TABLET PO SCH (21:34)
[2022-09-18] MEDS: ATORVASTATIN CALCIUM 40MG TABLET PO SCH (21:35)
[2022-09-19] VITALS (90 sets, daily range): BP systolic 106–195; BP diastolic 44–90
[2022-09-19] MEDS: BLOOD SUGAR DIAGNOSTIC STRIP TEST SCH ×4 (00:14→17:28)
[2022-09-19] MEDS: INSULIN LISPRO 100 UNITS/ML SUBCUT SCH ×4 (00:18→17:54)
[2022-09-19] MEDS: ALBUTEROL (0.083%) 2.5MG/3ML NEB HHN SCH ×6 (00:37→20:09)
[2022-09-19] MEDS: ACETYLCYSTEINE 200MG/ML 20% VIAL 4ML INH SCH ×3 (00:37→16:08)
[2022-09-19 05:21] LABS: HEMATOCRIT. 32.5 % (42.0-52.0); HEMOGLOBIN. 10.9 g/dL (14.0-18.0); MEAN CORPUSCULAR HEMOGLOBIN 28.7 pg (28.0-32.0); MEAN CORPUSCULAR VOLUME 85.8 fL (80.0-94.0); MEAN PLATELET VOLUME 8.2 fl (7.4-10.4); PLATELET 310 x1000/uL (130-400); RED BLOOD CELL COUNT 3.79 mill/uL (4.7-6.1); RED CELL DISTRIBUTION WIDTH 13.2 % (11.6-14.6)
[2022-09-19] MEDS: PIPERACILLIN/TAZOBACTAM 3.375 G in DEXTROSE 5% WATER 50 ML IV SCH ×3 (06:17→21:51)
[2022-09-19] MEDS: NICARDIPINE 50 MG in SODIUM CHLORIDE 0.9% 230 ML IV PRN (06:18)
[2022-09-19] MEDS: NITROGLYCERIN 50MG PREMIX 250 ML IV PRN (06:20)
[2022-09-19] MEDS: HYDRALAZINE HCL 100MG TABLET PO SCH ×4 (06:27→17:54)
[2022-09-19] MEDS: CARVEDILOL 12.5MG TABLET PO SCH ×2 (09:17→21:50)
[2022-09-19] MEDS: PANTOPRAZOLE SODIUM 40 MG/VIAL IV SCH (09:17)
[2022-09-19] MEDS: AMLODIPINE 10MG TABLET PO SCH ×2 (09:17→16:30)
[2022-09-19] MEDS: INSULIN GLARGINE 100 UNITS/ML SUBCUT SCH ×2 (09:18→21:53)
[2022-09-19 09:32] LABS: BG BASE EXCESS -1.6 mmol/L (-2.0-2.0); BG CARBOXYHEMOGLOBIN 0.3 % (0.5-1.5); BG DEOXYHEMOGLOBIN 1.4 % (0.0-5.0); BG HCO3 ACT 21.7 mmol/L (22.0-26.0); BG OXYGEN SATURATION 98.6 % (92.0-98.5); BG OXYHEMOGLOBIN 98.3 % (94.0-97.0); BG PCO2 31.9 mmHg (35.0-45.0); BG PO2 152.1 mmHg (75.0-100.0); BG SAMPLE SITE RIGHT RADIAL; BG TOTAL HEMOGLOBIN 11.1 g/dL (12.0-18.0); BG VENT MODE VENT - AC
[2022-09-19 12:48] LABS: PLATELET ESTIMATE NORMAL
[2022-09-19] MEDS: NYSTATIN 100,000 UNITS/ML 5ML UDC SSW SCH (17:54)
[2022-09-19] MEDS: ATORVASTATIN CALCIUM 40MG TABLET PO SCH (21:50)
[2022-09-20] VITALS (95 sets, daily range): BP systolic 108–166; BP diastolic 43–96
[2022-09-20] MEDS: NYSTATIN 100,000 UNITS/ML 5ML UDC SSW SCH ×4 (00:20→17:40)
[2022-09-20] MEDS: HYDRALAZINE HCL 100MG TABLET PO SCH ×4 (00:21→17:40)
[2022-09-20] MEDS: BLOOD SUGAR DIAGNOSTIC STRIP TEST SCH ×4 (00:21→17:04)
[2022-09-20] MEDS: INSULIN LISPRO 100 UNITS/ML SUBCUT SCH ×4 (00:22→17:41)
[2022-09-20] MEDS: ALBUTEROL (0.083%) 2.5MG/3ML NEB HHN SCH ×6 (00:29→20:35)
[2022-09-20] MEDS: ACETYLCYSTEINE 200MG/ML 20% VIAL 4ML INH SCH ×3 (00:29→16:39)
[2022-09-20 06:33] LABS: HEMATOCRIT. 33.1 % (42.0-52.0); HEMOGLOBIN. 11.2 g/dL (14.0-18.0); MEAN PLATELET VOLUME 8.4 fl (7.4-10.4); PLATELET 301 x1000/uL (130-400); RED BLOOD CELL COUNT 3.85 mill/uL (4.7-6.1)
[2022-09-20] MEDS: PIPERACILLIN/TAZOBACTAM 3.375 G in DEXTROSE 5% WATER 50 ML IV SCH ×2 (06:34→13:34)
[2022-09-20 06:40] LABS: CHLORIDE 119 mEq/L (98-107)
[2022-09-20 09:57] LABS: BG BASE EXCESS 0.2 mmol/L (-2.0-2.0); BG CARBOXYHEMOGLOBIN 0.4 % (0.5-1.5); BG DEOXYHEMOGLOBIN 4.3 % (0.0-5.0); BG FRACTION INSPIRED OXYGEN 40; BG HCO3 ACT 24.5 mmol/L (22.0-26.0); BG METHEMOGLOBIN 0.3 % (0.0-1.5); BG OXYGEN SATURATION 95.7 % (92.0-98.5); BG PCO2 38.4 mmHg (35.0-45.0); BG PH 7.422 (7.350-7.450); BG SAMPLE SITE RIGHT RADIAL; BG TOTAL HEMOGLOBIN 12.7 g/dL (12.0-18.0); BG VENT MODE VENT - AC
[2022-09-20] MEDS: AMLODIPINE 10MG TABLET PO SCH ×2 (10:17→17:40)
[2022-09-20] MEDS: CARVEDILOL 12.5MG TABLET PO SCH ×2 (10:17→21:28)
[2022-09-20] MEDS: PANTOPRAZOLE SODIUM 40 MG/VIAL IV SCH (10:18)
[2022-09-20] MEDS: INSULIN GLARGINE 100 UNITS/ML SUBCUT SCH ×2 (10:19→21:43)
[2022-09-20 15:13] LABS: PLATELET ESTIMATE NORMAL
[2022-09-20] MEDS: ATORVASTATIN CALCIUM 40MG TABLET PO SCH (21:28)
[2022-09-21] VITALS (63 sets, daily range): BP systolic 102–163; BP diastolic 44–75
[2022-09-21] MEDS: ALBUTEROL (0.083%) 2.5MG/3ML NEB HHN SCH ×6 (00:08→20:21)
[2022-09-21] MEDS: HYDRALAZINE HCL 100MG TABLET PO SCH ×4 (00:34→17:47)
[2022-09-21] MEDS: NYSTATIN 100,000 UNITS/ML 5ML UDC SSW SCH ×4 (00:34→17:46)
[2022-09-21] MEDS: BLOOD SUGAR DIAGNOSTIC STRIP TEST SCH ×4 (00:35→17:47)
[2022-09-21] MEDS: INSULIN LISPRO 100 UNITS/ML SUBCUT SCH ×4 (00:43→17:48)
[2022-09-21 05:45] LABS: BASOPHILS % 0.2 % (0.0-2.0); EOSINOPHILS % 0.5 % (0.0-5.0); HEMATOCRIT. 33.1 % (42.0-52.0); HEMOGLOBIN. 11.1 g/dL (14.0-18.0); LYMPHOCYTES % 8.2 % (20.0-50.0); MEAN CORPUSCULAR HEMOGLOBIN 29.1 pg (28.0-32.0); MEAN CORPUSCULAR VOLUME 86.6 fL (80.0-94.0); MEAN PLATELET VOLUME 8.5 fl (7.4-10.4); MONOCYTES % 7.3 % (2.0-8.0); NEUTROPHILS % 83.8 % (40.0-76.0); PLATELET 360 x1000/uL (130-400); RED BLOOD CELL COUNT 3.83 mill/uL (4.7-6.1); RED CELL DISTRIBUTION WIDTH 13.1 % (11.6-14.6)
[2022-09-21] MEDS: ACETYLCYSTEINE 200MG/ML 20% VIAL 4ML INH SCH ×2 (08:20→16:47)
[2022-09-21] MEDS: PANTOPRAZOLE SODIUM 40 MG/VIAL IV SCH (08:43)
[2022-09-21] MEDS: AMLODIPINE 10MG TABLET PO SCH ×2 (08:44→17:04)
[2022-09-21] MEDS: CARVEDILOL 12.5MG TABLET PO SCH ×2 (08:44→21:25)
[2022-09-21 09:55] LABS: BG BASE EXCESS 1.3 mmol/L (-2.0-2.0); BG CARBOXYHEMOGLOBIN 0.2 % (0.5-1.5); BG DEOXYHEMOGLOBIN 3.5 % (0.0-5.0); BG FRACTION INSPIRED OXYGEN 40; BG HCO3 ACT 25.4 mmol/L (22.0-26.0); BG METHEMOGLOBIN 0.3 % (0.0-1.5); BG OXYGEN SATURATION 96.5 % (92.0-98.5); BG PCO2 38.5 mmHg (35.0-45.0); BG PH 7.438 (7.350-7.450); BG PO2 92.4 mmHg (75.0-100.0); BG SAMPLE SITE RIGHT RADIAL; BG TOTAL HEMOGLOBIN 10.8 g/dL (12.0-18.0); BG VENT MODE VENT - AC
[2022-09-21] MEDS: INSULIN GLARGINE 100 UNITS/ML SUBCUT SCH ×2 (09:58→22:55)
[2022-09-21] MEDS: DEXTROSE 5% WATER 1,000 ML IV SCH (16:21)
[2022-09-21] MEDS: AZITHROMYCIN 500 MG in DEXT 5% WATER 250 ML IV SCH (17:47)
[2022-09-21] MEDS: ATORVASTATIN CALCIUM 40MG TABLET PO SCH (21:23)
[2022-09-22] VITALS (44 sets, daily range): BP systolic 100–173; BP diastolic 43–83
[2022-09-22] MEDS: ALBUTEROL (0.083%) 2.5MG/3ML NEB HHN SCH ×5 (00:25→20:35)
[2022-09-22] MEDS: ACETYLCYSTEINE 200MG/ML 20% VIAL 4ML INH SCH ×3 (00:25→14:38)
[2022-09-22] MEDS: NYSTATIN 100,000 UNITS/ML 5ML UDC SSW SCH ×4 (00:39→17:46)
[2022-09-22] MEDS: BLOOD SUGAR DIAGNOSTIC STRIP TEST SCH ×4 (00:39→17:28)
[2022-09-22] MEDS: HYDRALAZINE HCL 100MG TABLET PO SCH ×4 (00:40→17:46)
[2022-09-22] MEDS: INSULIN LISPRO 100 UNITS/ML SUBCUT SCH ×4 (01:14→17:47)
[2022-09-22 05:47] LABS: BASOPHILS % 0.2 % (0.0-2.0); EOSINOPHILS % 0.7 % (0.0-5.0); HEMATOCRIT. 35.6 % (42.0-52.0); HEMOGLOBIN. 11.8 g/dL (14.0-18.0); LYMPHOCYTES % 8.7 % (20.0-50.0); MEAN CORPUSCULAR HEMOGLOBIN 28.7 pg (28.0-32.0); MEAN CORPUSCULAR VOLUME 86.4 fL (80.0-94.0); MEAN PLATELET VOLUME 8.6 fl (7.4-10.4); MONOCYTES % 7.3 % (2.0-8.0); NEUTROPHILS % 83.1 % (40.0-76.0); PLATELET 365 x1000/uL (130-400); RED BLOOD CELL COUNT 4.12 mill/uL (4.7-6.1); RED CELL DISTRIBUTION WIDTH 12.9 % (11.6-14.6)
[2022-09-22 06:03] LABS: CHLORIDE 115 mEq/L (98-107)
[2022-09-22] MEDS: PANTOPRAZOLE SODIUM 40 MG/VIAL IV SCH (08:05)
[2022-09-22] MEDS: CARVEDILOL 12.5MG TABLET PO SCH ×2 (08:06→20:54)
[2022-09-22] MEDS: AMLODIPINE 10MG TABLET PO SCH ×2 (08:07→17:00)
[2022-09-22] MEDS ORDERED: ALBUTEROL (0.083%) 2.5MG/3ML NEB ONE (08:48)
[2022-09-22 09:46] LABS: BG BASE EXCESS 3.1 mmol/L (-2.0-2.0); BG CARBOXYHEMOGLOBIN 0.2 % (0.5-1.5); BG DEOXYHEMOGLOBIN 2.3 % (0.0-5.0); BG FRACTION INSPIRED OXYGEN 35; BG HCO3 ACT 26.5 mmol/L (22.0-26.0); BG METHEMOGLOBIN 0.3 % (0.0-1.5); BG OXYGEN SATURATION 97.7 % (92.0-98.5); BG OXYHEMOGLOBIN 97.2 % (94.0-97.0); BG PCO2 36.4 mmHg (35.0-45.0); BG PO2 109.1 mmHg (75.0-100.0); BG SAMPLE SITE RIGHT RADIAL; BG TOTAL HEMOGLOBIN 11.7 g/dL (12.0-18.0); BG TOTAL RESPIRATORY RATE 16 b/min; BG VENT MODE VENT - AC
[2022-09-22] MEDS: INSULIN GLARGINE 100 UNITS/ML SUBCUT SCH ×2 (10:04→22:00)
[2022-09-22] MEDS: DEXTROSE 5% WATER 1,000 ML IV SCH (12:11)
[2022-09-22] MEDS: IPRATROPIUM BROMIDE (0.02%) 0.5MG/2.5ML NEB HHN SCH ×2 (14:37→20:35)
[2022-09-22] MEDS: AZITHROMYCIN 500 MG in DEXT 5% WATER 250 ML IV SCH (17:46)
[2022-09-22] MEDS: MICAFUNGIN 100 MG in SODIUM CHLORIDE 0.9% 100 ML IV SCH (20:46)
[2022-09-22] MEDS: ATORVASTATIN CALCIUM 40MG TABLET PO SCH (21:00)
[2022-09-23] VITALS (25 sets, daily range): BP systolic 91–173; BP diastolic 29–105
[2022-09-23] MEDS: BLOOD SUGAR DIAGNOSTIC STRIP TEST SCH ×4 (00:36→17:16)
[2022-09-23] MEDS: INSULIN LISPRO 100 UNITS/ML SUBCUT SCH ×4 (00:40→17:15)
[2022-09-23] MEDS: IPRATROPIUM BROMIDE (0.02%) 0.5MG/2.5ML NEB HHN SCH ×5 (02:24→20:47)
[2022-09-23] MEDS: ALBUTEROL (0.083%) 2.5MG/3ML NEB HHN SCH ×4 (02:24→20:47)
[2022-09-23] MEDS: ACETYLCYSTEINE 200MG/ML 20% VIAL 4ML INH SCH ×4 (02:24→15:26)
[2022-09-23] MEDS: HYDRALAZINE 20MG/ML VIAL IV PRN (04:16)
[2022-09-23] MEDS: NYSTATIN 100,000 UNITS/ML 5ML UDC SSW SCH ×4 (06:00→17:15)
[2022-09-23] MEDS: HYDRALAZINE HCL 100MG TABLET PO SCH ×4 (06:00→13:00)
[2022-09-23 06:34] LABS: HEMATOCRIT. 34.9 % (42.0-52.0); HEMOGLOBIN. 11.7 g/dL (14.0-18.0); MEAN CORPUSCULAR HEMOGLOBIN 28.8 pg (28.0-32.0); MEAN CORPUSCULAR VOLUME 85.7 fL (80.0-94.0); PLATELET 348 x1000/uL (130-400); RED BLOOD CELL COUNT 4.08 mill/uL (4.7-6.1); RED CELL DISTRIBUTION WIDTH 12.5 % (11.6-14.6)
[2022-09-23 06:37] LABS: PROTHROMBIN TIME 10.7 sec (9.6-11.0)
[2022-09-23] MEDS: PANTOPRAZOLE SODIUM 40 MG/VIAL IV SCH (08:20)
[2022-09-23] MEDS: AMLODIPINE 10MG TABLET PO SCH ×2 (08:21→17:15)
[2022-09-23] MEDS: CARVEDILOL 12.5MG TABLET PO SCH ×2 (08:21→20:41)
[2022-09-23] MEDS: ISOSORBIDE DINITRATE 10MG TABLET PO SCH ×3 (08:22→17:12)
[2022-09-23] MEDS: DEXTROSE 5% WATER 1,000 ML IV SCH (08:24)
[2022-09-23 09:10] LABS: BG BASE EXCESS 2.7 mmol/L (-2.0-2.0); BG CARBOXYHEMOGLOBIN 0.3 % (0.5-1.5); BG DEOXYHEMOGLOBIN 1.3 % (0.0-5.0); BG FRACTION INSPIRED OXYGEN 35; BG METHEMOGLOBIN 0.4 % (0.0-1.5); BG OXYGEN SATURATION 98.7 % (92.0-98.5); BG PCO2 35.6 mmHg (35.0-45.0); BG PH 7.482 (7.350-7.450); BG PO2 144.5 mmHg (75.0-100.0); BG SAMPLE SITE RIGHT RADIAL; BG TOTAL HEMOGLOBIN 11.8 g/dL (12.0-18.0); BG TOTAL RESPIRATORY RATE 16 b/min; BG VENT MODE VENT - AC
[2022-09-23 09:43] LABS: CHLORIDE 111 mEq/L (98-107)
[2022-09-23] MEDS: INSULIN GLARGINE 100 UNITS/ML SUBCUT SCH ×2 (10:36→21:20)
[2022-09-23 12:14] LABS: PLATELET ESTIMATE NORMAL
[2022-09-23] MEDS ORDERED: FENTANYL CITRATE/PF 50MCG/ML 2ML VIAL ONE (13:30)
[2022-09-23] MEDS ORDERED: ROCURONIUM BROMIDE 10MG/ML VIAL 5ML IV ONE (13:30)
[2022-09-23] MEDS ORDERED: PROPOFOL 200MG/20ML VIAL IV ONE (13:30)
[2022-09-23] MEDS: AZITHROMYCIN 500 MG in DEXT 5% WATER 250 ML IV SCH (17:12)
[2022-09-23] MEDS: MICAFUNGIN 100 MG in SODIUM CHLORIDE 0.9% 100 ML IV SCH (20:42)
[2022-09-23] MEDS: ATORVASTATIN CALCIUM 40MG TABLET PO SCH (20:42)
[2022-09-24] VITALS (35 sets, daily range): BP systolic 87–161; BP diastolic 48–100
[2022-09-24] MEDS: INSULIN LISPRO 100 UNITS/ML SUBCUT SCH ×4 (00:34→18:27)
[2022-09-24] MEDS: IPRATROPIUM BROMIDE (0.02%) 0.5MG/2.5ML NEB HHN SCH ×4 (00:39→21:12)
[2022-09-24] MEDS: ALBUTEROL (0.083%) 2.5MG/3ML NEB HHN SCH ×4 (00:39→21:12)
[2022-09-24] MEDS: ACETYLCYSTEINE 200MG/ML 20% VIAL 4ML INH SCH ×3 (00:40→14:25)
[2022-09-24] MEDS: HYDRALAZINE HCL 100MG TABLET PO SCH ×4 (01:12→18:00)
[2022-09-24] MEDS: DEXTROSE 5% WATER 1,000 ML IV SCH ×2 (04:27→19:09)
[2022-09-24] MEDS: NYSTATIN 100,000 UNITS/ML 5ML UDC SSW SCH ×4 (06:00→18:27)
[2022-09-24 06:27] LABS: BASOPHILS % 0.2 % (0.0-2.0); EOSINOPHILS % 0.7 % (0.0-5.0); LYMPHOCYTES % 7.2 % (20.0-50.0); MEAN CORPUSCULAR HEMOGLOBIN 28.9 pg (28.0-32.0); MEAN CORPUSCULAR VOLUME 86.3 fL (80.0-94.0); MEAN PLATELET VOLUME 8.9 fl (7.4-10.4); MONOCYTES % 5.4 % (2.0-8.0); NEUTROPHILS % 86.5 % (40.0-76.0); PLATELET 341 x1000/uL (130-400); RED BLOOD CELL COUNT 3.82 mill/uL (4.7-6.1); RED CELL DISTRIBUTION WIDTH 12.9 % (11.6-14.6)
[2022-09-24 06:37] LABS: PROTHROMBIN TIME 10.9 sec (9.6-11.0)
[2022-09-24] MEDS: BLOOD SUGAR DIAGNOSTIC STRIP TEST SCH ×4 (06:50→18:28)
[2022-09-24 07:00] LABS: CHLORIDE 107 mEq/L (98-107)
[2022-09-24] MEDS: PANTOPRAZOLE SODIUM 40 MG/VIAL IV SCH (08:43)
[2022-09-24] MEDS: ISOSORBIDE DINITRATE 10MG TABLET PO SCH ×3 (08:44→18:28)
[2022-09-24] MEDS: AMLODIPINE 10MG TABLET PO SCH ×2 (08:44→17:00)
[2022-09-24] MEDS: CARVEDILOL 12.5MG TABLET PO SCH ×2 (08:45→21:00)
[2022-09-24] MEDS: INSULIN GLARGINE 100 UNITS/ML SUBCUT SCH ×2 (08:46→22:59)
[2022-09-24 08:47] LABS: BG BASE EXCESS 2.3 mmol/L (-2.0-2.0); BG DEOXYHEMOGLOBIN 2.3 % (0.0-5.0); BG FRACTION INSPIRED OXYGEN 30; BG HCO3 ACT 25.3 mmol/L (22.0-26.0); BG METHEMOGLOBIN 0.3 % (0.0-1.5); BG OXYGEN SATURATION 97.7 % (92.0-98.5); BG OXYHEMOGLOBIN 97.4 % (94.0-97.0); BG PCO2 33.6 mmHg (35.0-45.0); BG PH 7.495 (7.350-7.450); BG PO2 107.4 mmHg (75.0-100.0); BG SAMPLE SITE RIGHT RADIAL; BG TOTAL HEMOGLOBIN 11.2 g/dL (12.0-18.0); BG VENT MODE VENT - AC
[2022-09-24] MEDS: AZITHROMYCIN 500 MG in DEXT 5% WATER 250 ML IV SCH (15:02)
[2022-09-24] MEDS ORDERED: PROPOFOL 200MG/20ML VIAL IV ONE (15:18)
[2022-09-24] MEDS ORDERED: MIDAZOLAM HCL 5 MG/5 ML VIAL ONE (15:19)
[2022-09-24] MEDS ORDERED: ROCURONIUM BROMIDE 10MG/ML VIAL 5ML IV ONE (15:22)
[2022-09-24] MEDS: ATORVASTATIN CALCIUM 40MG TABLET PO SCH (21:00)
[2022-09-24] MEDS: MICAFUNGIN 100 MG in SODIUM CHLORIDE 0.9% 100 ML IV SCH (22:59)
[2022-09-25] VITALS (25 sets, daily range): BP systolic 115–165; BP diastolic 48–106
[2022-09-25] MEDS: IPRATROPIUM BROMIDE (0.02%) 0.5MG/2.5ML NEB HHN SCH ×5 (01:25→20:36)
[2022-09-25] MEDS: ALBUTEROL (0.083%) 2.5MG/3ML NEB HHN SCH ×5 (01:25→20:35)
[2022-09-25] MEDS: ACETYLCYSTEINE 200MG/ML 20% VIAL 4ML INH SCH ×2 (01:25→08:54)
[2022-09-25] MEDS: HYDRALAZINE 20MG/ML VIAL IV PRN (02:47)
[2022-09-25] MEDS: HYDRALAZINE HCL 100MG TABLET PO SCH ×4 (06:00→17:24)
[2022-09-25 08:55] LABS: BG CARBOXYHEMOGLOBIN 0.4 % (0.5-1.5); BG DEOXYHEMOGLOBIN 1.2 % (0.0-5.0); BG FRACTION INSPIRED OXYGEN 30; BG HCO3 ACT 23.7 mmol/L (22.0-26.0); BG METHEMOGLOBIN 0.3 % (0.0-1.5); BG OXYGEN SATURATION 98.8 % (92.0-98.5); BG OXYHEMOGLOBIN 98.1 % (94.0-97.0); BG PCO2 31.4 mmHg (35.0-45.0); BG PH 7.496 (7.350-7.450); BG PO2 148.6 mmHg (75.0-100.0); BG SAMPLE SITE RIGHT RADIAL; BG TOTAL HEMOGLOBIN 11.1 g/dL (12.0-18.0); BG VENT MODE VENT - AC
[2022-09-25] MEDS: CARVEDILOL 12.5MG TABLET PO SCH ×2 (09:33→21:36)
[2022-09-25] MEDS: ISOSORBIDE DINITRATE 10MG TABLET PO SCH ×3 (09:33→17:24)
[2022-09-25] MEDS: INSULIN GLARGINE 100 UNITS/ML SUBCUT SCH ×2 (09:33→21:42)
[2022-09-25] MEDS: AMLODIPINE 10MG TABLET PO SCH ×2 (09:33→17:24)
[2022-09-25] MEDS: PANTOPRAZOLE SODIUM 40 MG/VIAL IV SCH (09:48)
[2022-09-25] MEDS ORDERED: DEXTROSE 50% WATER 50ML SYRINGE IV PRN (12:45)
[2022-09-25] MEDS: BLOOD SUGAR DIAGNOSTIC STRIP TEST SCH ×3 (12:49→21:36)
[2022-09-25 12:50] LABS: HEMATOCRIT. 30.5 % (42.0-52.0); HEMOGLOBIN. 10.3 g/dL (14.0-18.0); MEAN CORPUSCULAR HEMOGLOBIN 28.7 pg (28.0-32.0); MEAN CORPUSCULAR VOLUME 84.6 fL (80.0-94.0); MEAN PLATELET VOLUME 8.6 fl (7.4-10.4); PLATELET 356 x1000/uL (130-400); RED CELL DISTRIBUTION WIDTH 12.7 % (11.6-14.6)
[2022-09-25 13:00] LABS: CHLORIDE 104 mEq/L (98-107)
[2022-09-25] MEDS: INSULIN LISPRO 100 UNITS/ML SUBCUT SCH ×3 (13:15→21:42)
[2022-09-25 13:26] LABS: PLATELET ESTIMATE NORMAL
[2022-09-25] MEDS: AZITHROMYCIN 500 MG in DEXT 5% WATER 250 ML IV SCH (17:24)
[2022-09-25] MEDS: DEXTROSE 5% WATER 1,000 ML IV SCH (19:30)
[2022-09-25] MEDS: MICAFUNGIN 100 MG in SODIUM CHLORIDE 0.9% 100 ML IV SCH (21:35)
[2022-09-25] MEDS: ATORVASTATIN CALCIUM 40MG TABLET PO SCH (21:36)
[2022-09-26] VITALS (20 sets, daily range): BP systolic 110–135; BP diastolic 47–86
[2022-09-26] MEDS: ALBUTEROL (0.083%) 2.5MG/3ML NEB HHN SCH ×4 (00:39→21:34)
[2022-09-26] MEDS: IPRATROPIUM BROMIDE (0.02%) 0.5MG/2.5ML NEB HHN SCH ×2 (00:39→21:34)
[2022-09-26] MEDS: ACETYLCYSTEINE 200MG/ML 20% VIAL 4ML INH SCH ×3 (00:40→13:55)
[2022-09-26] MEDS: HYDRALAZINE HCL 100MG TABLET PO SCH ×4 (06:00→17:11)
[2022-09-26 06:26] LABS: CHLORIDE 107 mEq/L (98-107)
[2022-09-26 06:30] LABS: BASOPHILS % 0.3 % (0.0-2.0); EOSINOPHILS % 0.6 % (0.0-5.0); HEMATOCRIT. 29.5 % (42.0-52.0); HEMOGLOBIN. 10.1 g/dL (14.0-18.0); LYMPHOCYTES % 8.6 % (20.0-50.0); MEAN CORPUSCULAR HEMOGLOBIN 29.2 pg (28.0-32.0); MEAN CORPUSCULAR VOLUME 85.2 fL (80.0-94.0); MEAN PLATELET VOLUME 9.2 fl (7.4-10.4); MONOCYTES % 7.6 % (2.0-8.0); NEUTROPHILS % 82.9 % (40.0-76.0); PLATELET 335 x1000/uL (130-400); RED BLOOD CELL COUNT 3.46 mill/uL (4.7-6.1)
[2022-09-26] MEDS: INSULIN LISPRO 100 UNITS/ML SUBCUT SCH ×3 (06:37→17:19)
[2022-09-26] MEDS: BLOOD SUGAR DIAGNOSTIC STRIP TEST SCH ×3 (06:37→17:09)
[2022-09-26] MEDS: AMLODIPINE 10MG TABLET PO SCH ×3 (08:52→17:18)
[2022-09-26] MEDS: CARVEDILOL 12.5MG TABLET PO SCH ×2 (08:52→21:48)
[2022-09-26] MEDS: PANTOPRAZOLE SODIUM 40 MG/VIAL IV SCH (09:10)
[2022-09-26] MEDS: ISOSORBIDE DINITRATE 10MG TABLET PO SCH ×3 (09:11→17:18)
[2022-09-26] MEDS: INSULIN GLARGINE 100 UNITS/ML SUBCUT SCH ×2 (09:11→22:15)
[2022-09-26 09:18] LABS: BG CARBOXYHEMOGLOBIN 0.3 % (0.5-1.5); BG DEOXYHEMOGLOBIN 1.5 % (0.0-5.0); BG FRACTION INSPIRED OXYGEN 30; BG HCO3 ACT 24.9 mmol/L (22.0-26.0); BG METHEMOGLOBIN 0.3 % (0.0-1.5); BG OXYGEN SATURATION 98.5 % (92.0-98.5); BG OXYHEMOGLOBIN 97.9 % (94.0-97.0); BG PCO2 32.4 mmHg (35.0-45.0); BG PH 7.503 (7.350-7.450); BG PO2 140.7 mmHg (75.0-100.0); BG SAMPLE SITE RIGHT RADIAL; BG TOTAL HEMOGLOBIN 10.3 g/dL (12.0-18.0); BG VENT MODE VENT - AC
[2022-09-26] MEDS: POLYETHYLENE GLYCOL 3350 (17GM) 1 DOSE PACK PEG SCH (17:18)
[2022-09-26] MEDS: DOCUSATE SODIUM SUGAR FREE 100MG/10ML UDC PEG SCH ×2 (17:18→21:00)
[2022-09-26] MEDS: MICAFUNGIN 100 MG in SODIUM CHLORIDE 0.9% 100 ML IV SCH (22:00)
[2022-09-27] VITALS (12 sets, daily range): BP systolic 106–141; BP diastolic 42–83
[2022-09-27] MEDS: BLOOD SUGAR DIAGNOSTIC STRIP TEST SCH ×4 (00:09→18:50)
[2022-09-27] MEDS: INSULIN LISPRO 100 UNITS/ML SUBCUT SCH ×4 (00:14→19:23)
[2022-09-27] MEDS: ACETYLCYSTEINE 200MG/ML 20% VIAL 4ML INH SCH ×2 (02:01→08:50)
[2022-09-27] MEDS: IPRATROPIUM BROMIDE (0.02%) 0.5MG/2.5ML NEB HHN SCH ×3 (02:02→12:00)
[2022-09-27] MEDS: ALBUTEROL (0.083%) 2.5MG/3ML NEB HHN SCH ×2 (02:06→21:11)
[2022-09-27] MEDS: HYDRALAZINE HCL 100MG TABLET PO SCH ×4 (05:47→18:09)
[2022-09-27 08:50] LABS: CHLORIDE 107 mEq/L (98-107)
[2022-09-27] MEDS: CARVEDILOL 12.5MG TABLET PO SCH ×2 (09:00→22:06)
[2022-09-27] MEDS: AMLODIPINE 10MG TABLET PO SCH ×2 (09:00→18:08)
[2022-09-27] MEDS: ISOSORBIDE DINITRATE 10MG TABLET PO SCH ×3 (09:00→18:09)
[2022-09-27 09:11] LABS: BG BASE EXCESS 1.9 mmol/L (-2.0-2.0); BG CARBOXYHEMOGLOBIN 0.2 % (0.5-1.5); BG DEOXYHEMOGLOBIN 1.6 % (0.0-5.0); BG FRACTION INSPIRED OXYGEN 30; BG METHEMOGLOBIN 0.3 % (0.0-1.5); BG OXYGEN SATURATION 98.4 % (92.0-98.5); BG OXYHEMOGLOBIN 97.9 % (94.0-97.0); BG PH 7.485 (7.350-7.450); BG PO2 132.6 mmHg (75.0-100.0); BG SAMPLE SITE RIGHT RADIAL; BG TOTAL HEMOGLOBIN 10.5 g/dL (12.0-18.0); BG TOTAL RESPIRATORY RATE 18 b/min; BG VENT MODE VENT - AC
[2022-09-27] MEDS: POLYETHYLENE GLYCOL 3350 (17GM) 1 DOSE PACK PEG SCH (09:45)
[2022-09-27] MEDS: DOCUSATE SODIUM SUGAR FREE 100MG/10ML UDC PEG SCH ×2 (09:46→18:09)
[2022-09-27] MEDS: PANTOPRAZOLE SODIUM 40 MG/VIAL IV SCH (09:51)
[2022-09-27] MEDS: INSULIN GLARGINE 100 UNITS/ML SUBCUT SCH ×2 (10:21→22:18)
[2022-09-27 11:27] LABS: BASOPHILS % 0.7 % (0.0-2.0); EOSINOPHILS % 0.4 % (0.0-5.0); HEMATOCRIT. 27.7 % (42.0-52.0); HEMOGLOBIN. 9.5 g/dL (14.0-18.0); LYMPHOCYTES % 8.5 % (20.0-50.0); MEAN CORPUSCULAR HEMOGLOBIN 29.2 pg (28.0-32.0); MEAN CORPUSCULAR VOLUME 85.8 fL (80.0-94.0); MEAN PLATELET VOLUME 9.2 fl (7.4-10.4); MONOCYTES % 6.8 % (2.0-8.0); NEUTROPHILS % 83.6 % (40.0-76.0); PLATELET 315 x1000/uL (130-400); RED BLOOD CELL COUNT 3.23 mill/uL (4.7-6.1); RED CELL DISTRIBUTION WIDTH 13.1 % (11.6-14.6)
[2022-09-27 16:07] LABS: PROTHROMBIN TIME 10.9 sec (9.6-11.0)
[2022-09-28] VITALS (11 sets, daily range): BP systolic 100–157; BP diastolic 49–91
[2022-09-28] MEDS: BLOOD SUGAR DIAGNOSTIC STRIP TEST SCH ×5 (00:58→23:54)
[2022-09-28] MEDS: INSULIN LISPRO 100 UNITS/ML SUBCUT SCH ×5 (01:00→23:54)
[2022-09-28] MEDS: ACETYLCYSTEINE 200MG/ML 20% VIAL 4ML INH SCH (01:46)
[2022-09-28] MEDS: ALBUTEROL (0.083%) 2.5MG/3ML NEB HHN SCH ×2 (01:46→08:53)
[2022-09-28] MEDS: HYDRALAZINE HCL 100MG TABLET PO SCH ×5 (06:00→23:53)
[2022-09-28 06:43] LABS: BASOPHILS % 0.6 % (0.0-2.0); HEMATOCRIT. 30.3 % (42.0-52.0); HEMOGLOBIN. 10.2 g/dL (14.0-18.0); LYMPHOCYTES % 8.8 % (20.0-50.0); MEAN CORPUSCULAR HEMOGLOBIN 28.9 pg (28.0-32.0); MEAN CORPUSCULAR VOLUME 86.1 fL (80.0-94.0); MEAN PLATELET VOLUME 8.5 fl (7.4-10.4); MONOCYTES % 6.8 % (2.0-8.0); NEUTROPHILS % 82.8 % (40.0-76.0); PLATELET 326 x1000/uL (130-400); RED BLOOD CELL COUNT 3.51 mill/uL (4.7-6.1); RED CELL DISTRIBUTION WIDTH 13.2 % (11.6-14.6)
[2022-09-28 07:25] LABS: CHLORIDE 104 mEq/L (98-107)
[2022-09-28 08:49] LABS: BG BASE EXCESS 2.4 mmol/L (-2.0-2.0); BG CARBOXYHEMOGLOBIN 0.2 % (0.5-1.5); BG FRACTION INSPIRED OXYGEN 30; BG HCO3 ACT 26.2 mmol/L (22.0-26.0); BG METHEMOGLOBIN 0.3 % (0.0-1.5); BG OXYHEMOGLOBIN 97.5 % (94.0-97.0); BG PCO2 37.2 mmHg (35.0-45.0); BG PH 7.465 (7.350-7.450); BG PO2 109.6 mmHg (75.0-100.0); BG SAMPLE SITE RIGHT RADIAL; BG TOTAL HEMOGLOBIN 10.4 g/dL (12.0-18.0); BG TOTAL RESPIRATORY RATE 16 b/min; BG VENT MODE VENT - AC
[2022-09-28] MEDS: PANTOPRAZOLE SODIUM 40 MG/VIAL IV SCH (09:20)
[2022-09-28] MEDS: DOCUSATE SODIUM SUGAR FREE 100MG/10ML UDC PEG SCH (09:20)
[2022-09-28] MEDS: POLYETHYLENE GLYCOL 3350 (17GM) 1 DOSE PACK PEG SCH (09:20)
[2022-09-28] MEDS: CARVEDILOL 12.5MG TABLET PO SCH ×2 (09:21→20:50)
[2022-09-28] MEDS: AMLODIPINE 10MG TABLET PO SCH ×2 (09:21→17:00)
[2022-09-28] MEDS: ISOSORBIDE DINITRATE 10MG TABLET PO SCH ×3 (09:21→17:00)
[2022-09-28] MEDS: INSULIN GLARGINE 100 UNITS/ML SUBCUT SCH ×2 (09:22→20:51)
[2022-09-28] MEDS: ENOXAPARIN 40MG/0.4ML SYR SUBCUT SCH (10:42)
[2022-09-28] MEDS ORDERED: LACTULOSE 20G/30ML UDC PO NR (13:45)
[2022-09-28] MEDS ORDERED: BISACODYL 10MG SUPP PR NR (13:45)
[2022-09-28] MEDS: IPRATROPIUM BROMIDE (0.02%) 0.5MG/2.5ML NEB HHN SCH (20:44)
[2022-09-29] VITALS (12 sets, daily range): BP systolic 107–142; BP diastolic 45–70
[2022-09-29] MEDS: ACETYLCYSTEINE 200MG/ML 20% VIAL 4ML INH SCH ×3 (01:34→14:28)
[2022-09-29] MEDS: IPRATROPIUM BROMIDE (0.02%) 0.5MG/2.5ML NEB HHN SCH ×4 (01:34→21:16)
[2022-09-29] MEDS: BLOOD SUGAR DIAGNOSTIC STRIP TEST SCH ×3 (05:32→23:48)
[2022-09-29] MEDS: HYDRALAZINE HCL 100MG TABLET PO SCH ×4 (05:35→23:57)
[2022-09-29] MEDS: INSULIN LISPRO 100 UNITS/ML SUBCUT SCH ×4 (05:36→23:48)
[2022-09-29 07:34] LABS: BASOPHILS % 0.5 % (0.0-2.0); EOSINOPHILS % 1.2 % (0.0-5.0); HEMATOCRIT. 28.2 % (42.0-52.0); HEMOGLOBIN. 9.8 g/dL (14.0-18.0); LYMPHOCYTES % 7.6 % (20.0-50.0); MEAN CORPUSCULAR HEMOGLOBIN 29.4 pg (28.0-32.0); MEAN CORPUSCULAR VOLUME 84.7 fL (80.0-94.0); MEAN PLATELET VOLUME 8.8 fl (7.4-10.4); NEUTROPHILS % 84.7 % (40.0-76.0); PLATELET 300 x1000/uL (130-400); RED BLOOD CELL COUNT 3.33 mill/uL (4.7-6.1)
[2022-09-29 08:04] LABS: CHLORIDE 105 mEq/L (98-107)
[2022-09-29] MEDS: PANTOPRAZOLE SODIUM 40 MG/VIAL IV SCH (08:49)
[2022-09-29] MEDS: AMLODIPINE 10MG TABLET PO SCH ×2 (08:50→16:43)
[2022-09-29] MEDS: POLYETHYLENE GLYCOL 3350 (17GM) 1 DOSE PACK PEG SCH (08:51)
[2022-09-29] MEDS: ISOSORBIDE DINITRATE 10MG TABLET PO SCH ×3 (08:51→16:42)
[2022-09-29] MEDS: CARVEDILOL 12.5MG TABLET PO SCH ×2 (08:51→21:24)
[2022-09-29] MEDS: DOCUSATE SODIUM SUGAR FREE 100MG/10ML UDC GT SCH (08:52)
[2022-09-29] MEDS ORDERED: SORBITOL 70% SOLN 30ML GT NR (10:15)
[2022-09-29] MEDS: INSULIN GLARGINE 100 UNITS/ML SUBCUT SCH ×2 (11:08→21:24)
[2022-09-29 11:10] LABS: BG BASE EXCESS 1.9 mmol/L (-2.0-2.0); BG CARBOXYHEMOGLOBIN 0.3 % (0.5-1.5); BG DEOXYHEMOGLOBIN 2.1 % (0.0-5.0); BG FRACTION INSPIRED OXYGEN 30; BG HCO3 ACT 25.8 mmol/L (22.0-26.0); BG METHEMOGLOBIN 0.6 % (0.0-1.5); BG OXYGEN SATURATION 97.9 % (92.0-98.5); BG PCO2 37.5 mmHg (35.0-45.0); BG PH 7.455 (7.350-7.450); BG PO2 117.6 mmHg (75.0-100.0); BG SAMPLE SITE RIGHT RADIAL; BG TOTAL HEMOGLOBIN 9.7 g/dL (12.0-18.0); BG VENT MODE VENT - SIMV
[2022-09-29] MEDS: ENOXAPARIN 40MG/0.4ML SYR SUBCUT SCH (11:37)
[2022-09-29] MEDS ORDERED: IPRATROPIUM/ALBUTEROL 0.5-3(2.5)MG/3ML NEB HHN PRN (12:45)
[2022-09-29] MEDS ORDERED: ALBUTEROL (0.083%) 2.5MG/3ML NEB HHN PRN (13:00)
[2022-09-29] MEDS ORDERED: IPRATROPIUM BROMIDE (0.02%) 0.5MG/2.5ML NEB HHN PRN (13:00)
[2022-09-29] MEDS: ALBUTEROL (0.083%) 2.5MG/3ML NEB HHN SCH ×2 (14:27→21:15)
[2022-09-29] MEDS ORDERED: IPRATROPIUM/ALBUTEROL 0.5-3(2.5)MG/3ML NEB HHN SCH (18:00)
[2022-09-30] VITALS (12 sets, daily range): BP systolic 114–130; BP diastolic 48–65
[2022-09-30] MEDS: ACETYLCYSTEINE 200MG/ML 20% VIAL 4ML INH SCH ×3 (01:56→14:27)
[2022-09-30] MEDS: IPRATROPIUM BROMIDE (0.02%) 0.5MG/2.5ML NEB HHN SCH ×4 (01:56→20:20)
[2022-09-30] MEDS: ALBUTEROL (0.083%) 2.5MG/3ML NEB HHN SCH ×4 (01:58→20:19)
[2022-09-30 06:05] LABS: BASOPHILS % 0.4 % (0.0-2.0); EOSINOPHILS % 1.4 % (0.0-5.0); HEMATOCRIT. 30.4 % (42.0-52.0); HEMOGLOBIN. 10.4 g/dL (14.0-18.0); LYMPHOCYTES % 9.6 % (20.0-50.0); MEAN CORPUSCULAR VOLUME 85.2 fL (80.0-94.0); MEAN PLATELET VOLUME 8.9 fl (7.4-10.4); MONOCYTES % 7.2 % (2.0-8.0); NEUTROPHILS % 81.4 % (40.0-76.0); PLATELET 283 x1000/uL (130-400); RED BLOOD CELL COUNT 3.57 mill/uL (4.7-6.1); RED CELL DISTRIBUTION WIDTH 13.5 % (11.6-14.6)
[2022-09-30] MEDS: BLOOD SUGAR DIAGNOSTIC STRIP TEST SCH ×3 (06:08→17:34)
[2022-09-30] MEDS: INSULIN LISPRO 100 UNITS/ML SUBCUT SCH ×3 (06:20→17:45)
[2022-09-30] MEDS: HYDRALAZINE HCL 100MG TABLET PO SCH ×3 (06:20→17:18)
[2022-09-30] MEDS: PANTOPRAZOLE SODIUM 40 MG/VIAL IV SCH (08:06)
[2022-09-30] MEDS: DOCUSATE SODIUM SUGAR FREE 100MG/10ML UDC GT SCH (08:07)
[2022-09-30] MEDS: POLYETHYLENE GLYCOL 3350 (17GM) 1 DOSE PACK PEG SCH (08:07)
[2022-09-30] MEDS: AMLODIPINE 10MG TABLET PO SCH ×2 (08:10→17:18)
[2022-09-30] MEDS: CARVEDILOL 12.5MG TABLET PO SCH ×2 (08:11→21:49)
[2022-09-30] MEDS: ISOSORBIDE DINITRATE 10MG TABLET PO SCH ×3 (08:12→17:17)
[2022-09-30 08:16] LABS: BG BASE EXCESS 8.2 mmol/L (-2.0-2.0); BG CARBOXYHEMOGLOBIN 0.3 % (0.5-1.5); BG DEOXYHEMOGLOBIN 1.9 % (0.0-5.0); BG HCO3 ACT 32.9 mmol/L (22.0-26.0); BG METHEMOGLOBIN 0.4 % (0.0-1.5); BG OXYGEN SATURATION 98.1 % (92.0-98.5); BG OXYHEMOGLOBIN 97.4 % (94.0-97.0); BG PCO2 46.4 mmHg (35.0-45.0); BG PH 7.468 (7.350-7.450); BG PO2 123.2 mmHg (75.0-100.0); BG SAMPLE SITE RIGHT RADIAL; BG TOTAL HEMOGLOBIN 10.5 g/dL (12.0-18.0); BG VENT MODE VENT - SIMV
[2022-09-30 08:54] LABS: CHLORIDE 103 mEq/L (98-107)
[2022-09-30] MEDS: ENOXAPARIN 40MG/0.4ML SYR SUBCUT SCH (10:34)
[2022-09-30] MEDS: INSULIN GLARGINE 100 UNITS/ML SUBCUT SCH (10:35)
[2022-09-30] MEDS: HYDRALAZINE 20MG/ML VIAL IV PRN (12:30)
[2022-10-01] VITALS (12 sets, daily range): BP systolic 119–152; BP diastolic 50–68
[2022-10-01] MEDS: INSULIN LISPRO 100 UNITS/ML SUBCUT SCH ×4 (00:33→17:54)
[2022-10-01] MEDS: BLOOD SUGAR DIAGNOSTIC STRIP TEST SCH ×5 (00:34→23:15)
[2022-10-01] MEDS: INSULIN GLARGINE 100 UNITS/ML SUBCUT SCH ×3 (00:34→21:16)
[2022-10-01] MEDS: HYDRALAZINE HCL 100MG TABLET PO SCH ×5 (00:36→23:15)
[2022-10-01] MEDS: ACETYLCYSTEINE 200MG/ML 20% VIAL 4ML INH SCH ×3 (01:54→16:03)
[2022-10-01] MEDS: ALBUTEROL (0.083%) 2.5MG/3ML NEB HHN SCH ×4 (01:55→20:33)
[2022-10-01] MEDS: IPRATROPIUM BROMIDE (0.02%) 0.5MG/2.5ML NEB HHN SCH ×4 (01:55→20:33)
[2022-10-01 06:41] LABS: CHLORIDE 104 mEq/L (98-107)
[2022-10-01 06:43] LABS: BASOPHILS % 0.7 % (0.0-2.0); EOSINOPHILS % 1.6 % (0.0-5.0); HEMATOCRIT. 30.1 % (42.0-52.0); HEMOGLOBIN. 10.2 g/dL (14.0-18.0); LYMPHOCYTES % 8.8 % (20.0-50.0); MEAN CORPUSCULAR HEMOGLOBIN 29.1 pg (28.0-32.0); MEAN CORPUSCULAR VOLUME 85.9 fL (80.0-94.0); NEUTROPHILS % 80.9 % (40.0-76.0); PLATELET 295 x1000/uL (130-400); RED CELL DISTRIBUTION WIDTH 13.3 % (11.6-14.6)
[2022-10-01] MEDS: PANTOPRAZOLE SODIUM 40 MG/VIAL IV SCH (08:32)
[2022-10-01] MEDS: AMLODIPINE 10MG TABLET PO SCH ×2 (08:33→17:54)
[2022-10-01] MEDS: ISOSORBIDE DINITRATE 10MG TABLET PO SCH ×3 (08:33→17:54)
[2022-10-01] MEDS: CARVEDILOL 12.5MG TABLET PO SCH ×2 (08:34→21:16)
[2022-10-01] MEDS: POLYETHYLENE GLYCOL 3350 (17GM) 1 DOSE PACK PEG SCH (08:34)
[2022-10-01] MEDS: DOCUSATE SODIUM SUGAR FREE 100MG/10ML UDC GT SCH (08:34)
[2022-10-01] MEDS: ENOXAPARIN 40MG/0.4ML SYR SUBCUT SCH (10:16)
[2022-10-02] VITALS (9 sets, daily range): BP systolic 117–155; BP diastolic 54–77
[2022-10-02] MEDS: IPRATROPIUM BROMIDE (0.02%) 0.5MG/2.5ML NEB HHN SCH ×4 (00:19→21:21)
[2022-10-02] MEDS: ALBUTEROL (0.083%) 2.5MG/3ML NEB HHN SCH ×4 (00:20→21:21)
[2022-10-02] MEDS: ACETYLCYSTEINE 200MG/ML 20% VIAL 4ML INH SCH ×4 (00:20→14:20)
[2022-10-02] MEDS: INSULIN LISPRO 100 UNITS/ML SUBCUT SCH ×5 (00:27→23:07)
[2022-10-02] MEDS: HYDRALAZINE HCL 100MG TABLET PO SCH ×4 (05:22→23:06)
[2022-10-02] MEDS: BLOOD SUGAR DIAGNOSTIC STRIP TEST SCH ×4 (05:22→23:07)
[2022-10-02 06:14] LABS: BASOPHILS % 0.5 % (0.0-2.0); EOSINOPHILS % 1.8 % (0.0-5.0); HEMATOCRIT. 30.9 % (42.0-52.0); HEMOGLOBIN. 10.8 g/dL (14.0-18.0); LYMPHOCYTES % 11.3 % (20.0-50.0); MEAN CORPUSCULAR HEMOGLOBIN 29.5 pg (28.0-32.0); MEAN CORPUSCULAR VOLUME 85.1 fL (80.0-94.0); MEAN PLATELET VOLUME 8.7 fl (7.4-10.4); MONOCYTES % 7.8 % (2.0-8.0); NEUTROPHILS % 78.6 % (40.0-76.0); PLATELET 293 x1000/uL (130-400); RED BLOOD CELL COUNT 3.64 mill/uL (4.7-6.1); RED CELL DISTRIBUTION WIDTH 13.4 % (11.6-14.6)
[2022-10-02 07:25] LABS: CHLORIDE 104 mEq/L (98-107)
[2022-10-02] MEDS: POLYETHYLENE GLYCOL 3350 (17GM) 1 DOSE PACK PEG SCH (08:10)
[2022-10-02] MEDS: PANTOPRAZOLE SODIUM 40 MG/VIAL IV SCH (08:10)
[2022-10-02] MEDS: DOCUSATE SODIUM SUGAR FREE 100MG/10ML UDC GT SCH (08:10)
[2022-10-02] MEDS: CARVEDILOL 12.5MG TABLET PO SCH ×2 (08:11→21:00)
[2022-10-02] MEDS: ISOSORBIDE DINITRATE 10MG TABLET PO SCH ×3 (08:11→17:33)
[2022-10-02] MEDS: AMLODIPINE 10MG TABLET PO SCH ×2 (08:12→17:32)
[2022-10-02] MEDS: INSULIN GLARGINE 100 UNITS/ML SUBCUT SCH ×2 (09:01→20:59)
[2022-10-02] MEDS: ENOXAPARIN 40MG/0.4ML SYR SUBCUT SCH (11:36)
[2022-10-03] VITALS (12 sets, daily range): BP systolic 121–145; BP diastolic 54–91
[2022-10-03] MEDS: ALBUTEROL (0.083%) 2.5MG/3ML NEB HHN SCH ×3 (01:25→14:58)
[2022-10-03] MEDS: IPRATROPIUM BROMIDE (0.02%) 0.5MG/2.5ML NEB HHN SCH ×3 (01:25→14:57)
[2022-10-03] MEDS: INSULIN LISPRO 100 UNITS/ML SUBCUT SCH ×4 (05:04→23:46)
[2022-10-03] MEDS: BLOOD SUGAR DIAGNOSTIC STRIP TEST SCH ×4 (05:04→23:46)
[2022-10-03] MEDS: HYDRALAZINE HCL 100MG TABLET PO SCH ×4 (05:04→23:46)
[2022-10-03 07:33] LABS: BASOPHILS % 0.6 % (0.0-2.0); EOSINOPHILS % 2.8 % (0.0-5.0); HEMATOCRIT. 29.4 % (42.0-52.0); HEMOGLOBIN. 10.1 g/dL (14.0-18.0); LYMPHOCYTES % 9.3 % (20.0-50.0); MEAN CORPUSCULAR HEMOGLOBIN 29.7 pg (28.0-32.0); MEAN CORPUSCULAR VOLUME 86.4 fL (80.0-94.0); MEAN PLATELET VOLUME 8.6 fl (7.4-10.4); MONOCYTES % 7.3 % (2.0-8.0); PLATELET 250 x1000/uL (130-400)
[2022-10-03] MEDS: CARVEDILOL 12.5MG TABLET PO SCH ×2 (08:29→21:23)
[2022-10-03] MEDS: POLYETHYLENE GLYCOL 3350 (17GM) 1 DOSE PACK PEG SCH (08:29)
[2022-10-03] MEDS: AMLODIPINE 10MG TABLET PO SCH ×2 (08:30→17:40)
[2022-10-03] MEDS: DOCUSATE SODIUM SUGAR FREE 100MG/10ML UDC GT SCH (08:30)
[2022-10-03] MEDS: ISOSORBIDE DINITRATE 10MG TABLET PO SCH ×3 (08:30→17:41)
[2022-10-03] MEDS: PANTOPRAZOLE SODIUM 40 MG/VIAL IV SCH (08:30)
[2022-10-03] MEDS: ACETYLCYSTEINE 200MG/ML 20% VIAL 4ML INH SCH ×2 (08:55→14:58)
[2022-10-03 09:14] LABS: CHLORIDE 102 mEq/L (98-107)
[2022-10-03] MEDS: ENOXAPARIN 40MG/0.4ML SYR SUBCUT SCH (10:23)
[2022-10-03] MEDS: INSULIN GLARGINE 100 UNITS/ML SUBCUT SCH ×2 (10:24→21:28)
[2022-10-04] VITALS (11 sets, daily range): BP systolic 117–142; BP diastolic 55–66
[2022-10-04] MEDS: ACETYLCYSTEINE 200MG/ML 20% VIAL 4ML INH SCH (03:03)
[2022-10-04] MEDS: ALBUTEROL (0.083%) 2.5MG/3ML NEB HHN SCH ×4 (03:04→20:42)
[2022-10-04] MEDS: IPRATROPIUM BROMIDE (0.02%) 0.5MG/2.5ML NEB HHN SCH ×4 (03:04→20:42)
[2022-10-04] MEDS: BLOOD SUGAR DIAGNOSTIC STRIP TEST SCH ×4 (05:17→23:31)
[2022-10-04] MEDS: HYDRALAZINE HCL 100MG TABLET PO SCH ×4 (05:18→23:07)
[2022-10-04] MEDS: INSULIN LISPRO 100 UNITS/ML SUBCUT SCH ×3 (05:18→17:35)
[2022-10-04 08:46] LABS: BASOPHILS % 0.4 % (0.0-2.0); EOSINOPHILS % 3.2 % (0.0-5.0); LYMPHOCYTES % 8.7 % (20.0-50.0); MEAN CORPUSCULAR HEMOGLOBIN 29.6 pg (28.0-32.0); MEAN CORPUSCULAR VOLUME 85.9 fL (80.0-94.0); MEAN PLATELET VOLUME 8.5 fl (7.4-10.4); MONOCYTES % 7.2 % (2.0-8.0); NEUTROPHILS % 80.5 % (40.0-76.0); PLATELET 239 x1000/uL (130-400); RED BLOOD CELL COUNT 3.38 mill/uL (4.7-6.1); RED CELL DISTRIBUTION WIDTH 13.7 % (11.6-14.6)
[2022-10-04] MEDS: POLYETHYLENE GLYCOL 3350 (17GM) 1 DOSE PACK PEG SCH (09:06)
[2022-10-04] MEDS: DOCUSATE SODIUM SUGAR FREE 100MG/10ML UDC GT SCH (09:06)
[2022-10-04] MEDS: PANTOPRAZOLE SODIUM 40 MG/VIAL IV SCH (09:07)
[2022-10-04] MEDS: ISOSORBIDE DINITRATE 10MG TABLET PO SCH ×3 (09:08→17:35)
[2022-10-04] MEDS: CARVEDILOL 12.5MG TABLET PO SCH ×2 (09:08→21:41)
[2022-10-04] MEDS: AMLODIPINE 10MG TABLET PO SCH ×2 (09:09→17:36)
[2022-10-04 09:21] LABS: CHLORIDE 103 mEq/L (98-107)
[2022-10-04] MEDS: INSULIN GLARGINE 100 UNITS/ML SUBCUT SCH ×2 (10:46→21:44)
[2022-10-04] MEDS: ENOXAPARIN 40MG/0.4ML SYR SUBCUT SCH (12:13)
[2022-10-05] VITALS (13 sets, daily range): BP systolic 121–140; BP diastolic 48–87
[2022-10-05] MEDS: INSULIN LISPRO 100 UNITS/ML SUBCUT SCH ×4 (00:11→18:14)
[2022-10-05] MEDS: ALBUTEROL (0.083%) 2.5MG/3ML NEB HHN SCH ×4 (00:48→20:51)
[2022-10-05] MEDS: IPRATROPIUM BROMIDE (0.02%) 0.5MG/2.5ML NEB HHN SCH ×4 (00:48→20:51)
[2022-10-05] MEDS: HYDRALAZINE HCL 100MG TABLET PO SCH ×3 (05:52→18:14)
[2022-10-05] MEDS: BLOOD SUGAR DIAGNOSTIC STRIP TEST SCH ×4 (06:19→23:44)
[2022-10-05 06:34] LABS: BASOPHILS % 0.7 % (0.0-2.0); EOSINOPHILS % 2.5 % (0.0-5.0); HEMATOCRIT. 29.9 % (42.0-52.0); HEMOGLOBIN. 10.3 g/dL (14.0-18.0); LYMPHOCYTES % 8.6 % (20.0-50.0); MEAN CORPUSCULAR HEMOGLOBIN 29.5 pg (28.0-32.0); MEAN PLATELET VOLUME 8.8 fl (7.4-10.4); MONOCYTES % 7.2 % (2.0-8.0); PLATELET 261 x1000/uL (130-400); RED BLOOD CELL COUNT 3.48 mill/uL (4.7-6.1); RED CELL DISTRIBUTION WIDTH 13.7 % (11.6-14.6)
[2022-10-05 07:35] LABS: CHLORIDE 102 mEq/L (98-107)
[2022-10-05] MEDS: PANTOPRAZOLE SODIUM 40 MG/VIAL IV SCH (09:12)
[2022-10-05] MEDS: POLYETHYLENE GLYCOL 3350 (17GM) 1 DOSE PACK PEG SCH (09:12)
[2022-10-05] MEDS: AMLODIPINE 10MG TABLET PO SCH ×2 (09:12→18:15)
[2022-10-05] MEDS: ISOSORBIDE DINITRATE 10MG TABLET PO SCH ×3 (09:13→18:14)
[2022-10-05] MEDS: DOCUSATE SODIUM SUGAR FREE 100MG/10ML UDC GT SCH (09:14)
[2022-10-05] MEDS: CARVEDILOL 12.5MG TABLET PO SCH ×2 (09:14→21:43)
[2022-10-05] MEDS: INSULIN GLARGINE 100 UNITS/ML SUBCUT SCH ×2 (10:36→21:43)
[2022-10-05] MEDS: ENOXAPARIN 40MG/0.4ML SYR SUBCUT SCH (10:37)
[2022-10-06] VITALS (12 sets, daily range): BP systolic 107–127; BP diastolic 44–60
[2022-10-06] MEDS: HYDRALAZINE HCL 100MG TABLET PO SCH ×5 (00:11→23:16)
[2022-10-06] MEDS: INSULIN LISPRO 100 UNITS/ML SUBCUT SCH ×5 (00:11→23:17)
[2022-10-06] MEDS: IPRATROPIUM BROMIDE (0.02%) 0.5MG/2.5ML NEB HHN SCH ×3 (00:19→14:11)
[2022-10-06] MEDS: ALBUTEROL (0.083%) 2.5MG/3ML NEB HHN SCH ×3 (00:20→14:12)
[2022-10-06] MEDS: BLOOD SUGAR DIAGNOSTIC STRIP TEST SCH ×4 (06:12→23:17)
[2022-10-06] MEDS: POLYETHYLENE GLYCOL 3350 (17GM) 1 DOSE PACK PEG SCH (08:13)
[2022-10-06] MEDS: DOCUSATE SODIUM SUGAR FREE 100MG/10ML UDC GT SCH (08:13)
[2022-10-06] MEDS: PANTOPRAZOLE SODIUM 40 MG/VIAL IV SCH (08:13)
[2022-10-06] MEDS: CARVEDILOL 12.5MG TABLET PO SCH ×2 (08:14→21:29)
[2022-10-06] MEDS: ISOSORBIDE DINITRATE 10MG TABLET PO SCH ×3 (08:14→17:00)
[2022-10-06] MEDS: AMLODIPINE 10MG TABLET PO SCH ×2 (08:14→16:20)
[2022-10-06] MEDS: ENOXAPARIN 40MG/0.4ML SYR SUBCUT SCH (10:49)
[2022-10-06] MEDS: INSULIN GLARGINE 100 UNITS/ML SUBCUT SCH ×2 (10:51→21:30)
[2022-10-07] VITALS (12 sets, daily range): BP systolic 106–145; BP diastolic 50–73
[2022-10-07] MEDS: BLOOD SUGAR DIAGNOSTIC STRIP TEST SCH ×3 (05:35→17:25)
[2022-10-07] MEDS: INSULIN LISPRO 100 UNITS/ML SUBCUT SCH ×3 (05:35→17:51)
[2022-10-07] MEDS: HYDRALAZINE HCL 100MG TABLET PO SCH ×3 (05:35→17:48)
[2022-10-07] MEDS: PANTOPRAZOLE SODIUM 40 MG/VIAL IV SCH (09:17)
[2022-10-07] MEDS: DOCUSATE SODIUM SUGAR FREE 100MG/10ML UDC GT SCH (09:17)
[2022-10-07] MEDS: CARVEDILOL 12.5MG TABLET PO SCH ×2 (09:18→21:16)
[2022-10-07] MEDS: AMLODIPINE 10MG TABLET PO SCH ×2 (09:18→17:47)
[2022-10-07] MEDS: POLYETHYLENE GLYCOL 3350 (17GM) 1 DOSE PACK PEG SCH (09:18)
[2022-10-07] MEDS: ISOSORBIDE DINITRATE 10MG TABLET PO SCH ×3 (09:19→17:47)
[2022-10-07] MEDS ORDERED: AMLO10TA80 PO (10:44)
[2022-10-07] MEDS ORDERED: LANTUSUD SUBCUT (10:44)
[2022-10-07] MEDS ORDERED: HYDR100T26 PO (10:44)
[2022-10-07] MEDS ORDERED: PANT40TA51 MT (10:44)
[2022-10-07] MEDS ORDERED: ISOS10TA2 PO (10:44)
[2022-10-07] MEDS ORDERED: COR12 PO (10:44)
[2022-10-07] MEDS: ENOXAPARIN 40MG/0.4ML SYR SUBCUT SCH (11:02)
[2022-10-07] MEDS: INSULIN GLARGINE 100 UNITS/ML SUBCUT SCH (11:03)
[2022-10-07] MEDS ORDERED: IPRATROPIUM/ALBUTEROL 0.5-3(2.5)MG/3ML NEB HHN PRN (12:30)
[2022-10-07] MEDS ORDERED: ALBUTEROL (0.083%) 2.5MG/3ML NEB HHN PRN (12:45)
[2022-10-07] MEDS ORDERED: IPRATROPIUM BROMIDE (0.02%) 0.5MG/2.5ML NEB HHN PRN (12:45)
[2022-10-07] MEDS ORDERED: IPRATROPIUM/ALBUTEROL 0.5-3(2.5)MG/3ML NEB HHN SCH (18:00)
[2022-10-07] MEDS: IPRATROPIUM BROMIDE (0.02%) 0.5MG/2.5ML NEB HHN SCH (20:44)
[2022-10-07] MEDS: ALBUTEROL (0.083%) 2.5MG/3ML NEB HHN SCH (20:45)
[2022-10-08] VITALS (7 sets, daily range): BP systolic 130–142; BP diastolic 56–69
[2022-10-08] MEDS: BLOOD SUGAR DIAGNOSTIC STRIP TEST SCH ×2 (00:41→05:51)
[2022-10-08] MEDS: INSULIN LISPRO 100 UNITS/ML SUBCUT SCH ×2 (00:41→05:51)
[2022-10-08] MEDS: INSULIN GLARGINE 100 UNITS/ML SUBCUT SCH ×2 (00:41→09:59)
[2022-10-08] MEDS: HYDRALAZINE HCL 100MG TABLET PO SCH ×2 (00:42→06:02)
[2022-10-08] MEDS: ACETYLCYSTEINE 200MG/ML 20% VIAL 4ML INH SCH ×2 (01:59→07:45)
[2022-10-08] MEDS: IPRATROPIUM BROMIDE (0.02%) 0.5MG/2.5ML NEB HHN SCH ×2 (01:59→07:44)
[2022-10-08] MEDS: ALBUTEROL (0.083%) 2.5MG/3ML NEB HHN SCH ×2 (01:59→07:44)
[2022-10-08] MEDS: DOCUSATE SODIUM SUGAR FREE 100MG/10ML UDC GT SCH (09:00)
[2022-10-08] MEDS: ISOSORBIDE DINITRATE 10MG TABLET PO SCH (09:57)
[2022-10-08] MEDS: CARVEDILOL 12.5MG TABLET PO SCH (09:57)
[2022-10-08] MEDS: POLYETHYLENE GLYCOL 3350 (17GM) 1 DOSE PACK PEG SCH (09:57)
[2022-10-08] MEDS: PANTOPRAZOLE SODIUM 40 MG/VIAL IV SCH (09:57)
[2022-10-08] MEDS: AMLODIPINE 10MG TABLET PO SCH (09:57)
== END 2022-10-08 11:45 | DRG 4 ==
LOC: ER 04:52 → MICUSO 09:38 → 8WST 21:44 → 6EST 09-07 15:27 → CVICU 09-10 15:10 → 5EST 09-26 19:20
PROVIDERS: ADMIT Internal Medicine; ATTEND Internal Medicine
PROC: 4A00X4Z Measurement of Central Nervous Electrical Activity, External Approach (ICD-10-PCS; 2022-08-28)
PROC: 03CK0ZZ Extirpation of Matter from Right Internal Carotid Artery, Open Approach (ICD-10-PCS; principal; 2022-09-11)
PROC: 03UK07Z Supplement Right Internal Carotid Artery with Autologous Tissue Substitute, Open Approach (ICD-10-PCS; 2022-09-11)
PROC: 03UK0JZ Supplement Right Internal Carotid Artery with Synthetic Substitute, Open Approach (ICD-10-PCS; 2022-09-11)
PROC: 5A1955Z Respiratory Ventilation, Greater than 96 Consecutive Hours (ICD-10-PCS; 2022-09-18)
PROC: 5A1955Z Respiratory Ventilation, Greater than 96 Consecutive Hours (ICD-10-PCS; 2022-09-23)
PROC: 0B110F4 Bypass Trachea to Cutaneous with Tracheostomy Device, Open Approach (ICD-10-PCS; 2022-09-23)
PROC: 0DH67UZ Insertion of Feeding Device into Stomach, Via Natural or Artificial Opening (ICD-10-PCS; 2022-09-24)
PROC: 02HV33Z Insertion of Infusion Device into Superior Vena Cava, Percutaneous Approach (ICD-10-PCS; 2022-09-28)
PROC: B548ZZA Ultrasonography of Superior Vena Cava, Guidance (ICD-10-PCS; 2022-09-28)
DX: I63.511 Cerebral infarction due to unspecified occlusion or stenosis of right middle cerebral artery (principal); I61.9 Nontraumatic intracerebral hemorrhage, unspecified; G93.6 Cerebral edema; J69.0 Pneumonitis due to inhalation of food and vomit; G93.40 Encephalopathy, unspecified; A41.9 Sepsis, unspecified organism; J96.21 Acute and chronic respiratory failure with hypoxia; E46 Unspecified protein-calorie malnutrition; L89.153 Pressure ulcer of sacral region, stage 3; I63.81 Other cerebral infarction due to occlusion or stenosis of small artery; L89.896 Pressure-induced deep tissue damage of other site; D64.9 Anemia, unspecified; B37.9 Candidiasis, unspecified; E11.65 Type 2 diabetes mellitus with hyperglycemia; F17.210 Nicotine dependence, cigarettes, uncomplicated; I10 Essential (primary) hypertension; I65.21 Occlusion and stenosis of right carotid artery; I16.0 Hypertensive urgency; R13.12 Dysphagia, oropharyngeal phase; R47.81 Slurred speech; G93.89 Other specified disorders of brain; B37.0 Candidal stomatitis; K29.70 Gastritis, unspecified, without bleeding; Z99.11 Dependence on respirator [ventilator] status; Z79.4 Long term (current) use of insulin; Z86.73 Personal history of transient ischemic attack (TIA), and cerebral infarction without residual deficits; Z68.26 Body mass index [BMI] 26.0-26.9, adult
CPT/HCPCS: 31500; 36415; 36573; 36600; 70496; 70498; 70551; 71045; 74018; 76700; 78580; 80048; 80053; 80061; 80305; 80320; 81003; 82040; 82375; 82805; 82962; 83036; 83605; 83735; 84100; 84134; 84145; 84478; 84484; 85025; 86850; 86900; 87070; 87426; 88304; 88311; 92610; 93005; 93306; 93880; 93970; 94002; 94003; 94640; 94667; 95816; 97112; 97162; 97164; 97166; 97530; 97535; 99291; A6261; C1725; C1893; C9113; J0330; J0360; J0456; J0692; J1100; J1644; J1650; J1815; J2060; J2248; J2250; J2270; J2310; J2405; J2440; J2543; J2704; J2710; J2720; J3010; J3490; J7030; J7050; J7060; J7070; J7608; Q9967; A4315; G0480